=== PATIENT | male | born 1945 | race Two or more races ===

== ENCOUNTER 2022-12-22 20:05 | Inpatient (IN) | payer MEDICARE, MEDICAID ==
[~2022-12-22] VITALS: Ht 182.9 cm; Wt 88.5 kg
[2022-12-22 20:50] LABS: Basophils # (auto) 0.1 10 ^3/uL (0-0.2); Basophils % (auto) 0.8 % (0.0-2.0); Eosinophils # (auto) 0.1 10 ^3/uL (0-0.8); Eosinophils % (auto) 1.2 % (0.0-7.0); Hematocrit 24.1 % (41.0-53.0); Hemoglobin 7.7 g/dL (13.5-17.5); Lymphocytes # (auto) 0.4 10 ^3/uL (0.4-5.4); Lymphocytes % (auto) 3.2 % (10.0-50.0); Mean Corpuscular Hemoglobin 28.6 pg (28.0-32.0); Mean Corpuscular Volume 89.4 fL (80.0-100.0); Monocytes # (auto) 0.8 10 ^3/uL (0-1.3); Neutrophils # (auto) 9.8 10 ^3/uL (1.6-8.6); Neutrophils % (auto) 87.8 % (37.0-80.0); Red Blood Cells 2.69 10^6/uL (4.5-5.90); White Blood Cell 11.1 10^3/uL (4.4-10.8)
[2022-12-22 20:51] LABS: Red Cell Distribution Width 20.2 % (11.8-14.3)
[2022-12-22 21:04] LABS: INR 1.02 (0.9-1.15); Partial Thromboplastin Time 28.5 sec (24.6-33.4)
[2022-12-22 21:08] LABS: Albumin 3.3 g/dL (3.4-5.0); Calcium 8.9 mg/dL (8.5-10.1); Potassium 4.4 mmol/L (3.5-5.1)
[2022-12-22 21:12] LABS: Bilirubin, Total 0.8 mg/dL (0.2-1.0); Total Protein 7.2 g/dL (6.4-8.2)
[2022-12-22] MEDS ORDERED: LABETALOL HCL 5 MG/ML 4ML SYRINGE IV ONE (21:30)
[2022-12-22 22:30] VITALS: BP 178/82
[2022-12-23] VITALS (13 sets, daily range): BP systolic 178–248; BP diastolic 54–85
[2022-12-23] MEDS ORDERED: LABETALOL HCL 5 MG/ML 4ML SYRINGE IV ONE (01:15)
[2022-12-23] MEDS ORDERED: hydrALAZINE HCL 20 MG/ML VL IV ONE (03:00)
[2022-12-23] MEDS ORDERED: ONDANSETRON HCL 4 MG/2 ML VIAL IV PRN (04:30)
[2022-12-23] MEDS ORDERED: ACETAMINOPHEN 325 MG TAB PO PRN (04:30)
[2022-12-23] MEDS ORDERED: ENOXAPARIN SOD 100 MG/1 ML SYRINGE SC ONE (04:30)
[2022-12-23] MEDS ORDERED: MORPHINE SULFATE INJ 2 MG/ml SYRG IV PRN (04:30)
[2022-12-23] MEDS ORDERED: NITROGLYCERIN 0.4 MG SL TAB SL PRN (04:30)
[2022-12-23] MEDS ORDERED: dilTIAZem 25 MG/5 ML VIAL IV ONE (05:15)
[2022-12-23] MEDS: hydrALAZINE HCL 25 MG TAB PO SCH ×3 (06:02→21:51)
[2022-12-23] MEDS: TICAGRELOR 90 MG TAB PO SCH ×2 (09:38→21:52)
[2022-12-23] MEDS: PANTOPRAZOLE 40 MG TAB PO SCH (09:39)
[2022-12-23] MEDS: LOSARTAN POTASSIUM 50 MG TAB PO SCH (09:39)
[2022-12-23] MEDS ORDERED: ISOSORBIDE MONONITRATE ER 60 MG TAB PO SCH (10:00)
[2022-12-23] MEDS ORDERED: METOPROLOL TARTRATE 50 MG TAB PO SCH (10:00)
[2022-12-23] MEDS ORDERED: IOHEXOL 350 MG/ML 100ML IJ ONE (15:25)
[2022-12-23] MEDS: SEVELAMER 800 MG TAB PO SCH (17:50)
[2022-12-23 18:28] LABS: Hemoglobin 7.6 g/dL (13.5-17.5)
[2022-12-23] MEDS: hydrALAZINE HCL 20 MG/ML VL IV PRN (19:04)
[2022-12-23] MEDS: ATORVASTATIN 20 MG TAB PO SCH (21:51)
[2022-12-23] MEDS: CARVEDILOL 12.5 MG TAB PO SCH (21:51)
[2022-12-24] VITALS (36 sets, daily range): BP systolic 113–233; BP diastolic 38–113
[2022-12-24] MEDS: hydrALAZINE HCL 20 MG/ML VL IV PRN ×2 (00:36→17:56)
[2022-12-24] MEDS: hydrALAZINE HCL 25 MG TAB PO SCH ×3 (06:20→21:33)
[2022-12-24] MEDS ORDERED: SODIUM CHL 0.9% 1000 ML BAG XX ONE ×2 (07:00)
[2022-12-24 07:26] LABS: Basophils # (auto) 0.1 10 ^3/uL (0-0.2); Basophils % (auto) 0.8 % (0.0-2.0); Eosinophils # (auto) 0 10 ^3/uL (0-0.8); Eosinophils % (auto) 0.1 % (0.0-7.0); Hematocrit 25.3 % (41.0-53.0); Hemoglobin 8.6 g/dL (13.5-17.5); Lymphocytes # (auto) 0.5 10 ^3/uL (0.4-5.4); Lymphocytes % (auto) 4.8 % (10.0-50.0); Mean Corpuscular Hemoglobin 29.8 pg (28.0-32.0); Mean Corpuscular Hgb Conc. 33.9 g/dL (32.0-36.0); Mean Corpuscular Volume 87.9 fL (80.0-100.0); Monocytes # (auto) 0.6 10 ^3/uL (0-1.3); Monocytes % (auto) 6.2 % (0.0-12.0); Neutrophils # (auto) 8.4 10 ^3/uL (1.6-8.6); Neutrophils % (auto) 88.1 % (37.0-80.0); Red Blood Cells 2.88 10^6/uL (4.5-5.90); Red Cell Distribution Width 18.5 % (11.8-14.3); White Blood Cell 9.5 10^3/uL (4.4-10.8)
[2022-12-24 07:53] LABS: % Iron Saturation 32.8 % (20-55)
[2022-12-24 07:55] LABS: Calcium 8.9 mg/dL (8.5-10.1); Potassium 3.7 mmol/L (3.5-5.1)
[2022-12-24 08:00] LABS: Albumin 3.2 g/dL (3.4-5.0); BUN/Creatinine Ratio 8.6 (10.0-20.0); Bilirubin, Total 1.3 mg/dL (0.2-1.0); Phosphorus 1.5 mg/dL (2.5-4.90); Total Protein 7.2 g/dL (6.4-8.2)
[2022-12-24] MEDS: ENOXAPARIN SOD 100 MG/1 ML SYRINGE SC SCH (10:00)
[2022-12-24] MEDS: TICAGRELOR 90 MG TAB PO SCH ×2 (10:00→21:32)
[2022-12-24] MEDS: LOSARTAN POTASSIUM 50 MG TAB PO SCH (11:24)
[2022-12-24] MEDS: CARVEDILOL 12.5 MG TAB PO SCH ×2 (11:24→21:33)
[2022-12-24] MEDS: SEVELAMER 800 MG TAB PO SCH ×3 (11:25→17:54)
[2022-12-24] MEDS: ISOSORBIDE MONONITRATE ER 60 MG TAB PO SCH (11:26)
[2022-12-24] MEDS: PANTOPRAZOLE 40 MG TAB PO SCH (11:26)
[2022-12-24] MEDS: cloNIDine HCL 0.1 MG TAB PO PRN (13:28)
[2022-12-24] MEDS ORDERED: EPOETIN ALFA-EPBX 10,000 UNIT/1ML VIAL SC ONE ×2 (21:00)
[2022-12-24] MEDS: ATORVASTATIN 20 MG TAB PO SCH (21:33)
[2022-12-25] VITALS (23 sets, daily range): BP systolic 138–174; BP diastolic 36–78
[2022-12-25] MEDS: hydrALAZINE HCL 25 MG TAB PO SCH ×3 (05:30→22:29)
[2022-12-25] MEDS: SEVELAMER 800 MG TAB PO SCH ×3 (08:12→17:44)
[2022-12-25] MEDS: CARVEDILOL 12.5 MG TAB PO SCH ×2 (09:30→22:29)
[2022-12-25] MEDS: ENOXAPARIN SOD 100 MG/1 ML SYRINGE SC SCH (09:31)
[2022-12-25] MEDS: LOSARTAN POTASSIUM 50 MG TAB PO SCH (09:31)
[2022-12-25] MEDS: PANTOPRAZOLE 40 MG TAB PO SCH (09:31)
[2022-12-25] MEDS: ISOSORBIDE MONONITRATE ER 60 MG TAB PO SCH (09:32)
[2022-12-25] MEDS: TICAGRELOR 90 MG TAB PO SCH ×2 (09:32→22:29)
[2022-12-25] MEDS: hydrALAZINE HCL 20 MG/ML VL IV PRN (12:47)
[2022-12-25] MEDS ORDERED: BUMETANIDE 2.5mg/10ml (0.25 mg/ml) INJ IV ONE (14:15)
[2022-12-25] MEDS: BUMETANIDE 2.5mg/10ml (0.25 mg/ml) INJ IV SCH (17:44)
[2022-12-25] MEDS: ALBUTEROL SULF 2.5 MG/0.5ML(0.5%) NEB SOLN NEB PRN (18:16)
[2022-12-25] MEDS: cloNIDine HCL 0.1 MG TAB PO PRN (20:28)
[2022-12-25] MEDS: guaiFENesin-DM 100/10mg/5ml SYR PO PRN (20:29)
[2022-12-25] MEDS: ATORVASTATIN 20 MG TAB PO SCH (22:29)
[2022-12-26 05:00] VITALS: BP 120/66
[2022-12-26] MEDS: hydrALAZINE HCL 25 MG TAB PO SCH ×3 (05:19→21:47)
[2022-12-26] MEDS: BUMETANIDE 2.5mg/10ml (0.25 mg/ml) INJ IV SCH ×2 (05:21→17:31)
[2022-12-26 07:01] LABS: Basophils # (auto) 0.1 10 ^3/uL (0-0.2); Eosinophils # (auto) 0.4 10 ^3/uL (0-0.8); Lymphocytes # (auto) 0.3 10 ^3/uL (0.4-5.4); Mean Corpuscular Hemoglobin 29.7 pg (28.0-32.0); Mean Corpuscular Hgb Conc. 33.2 g/dL (32.0-36.0); Mean Corpuscular Volume 89.4 fL (80.0-100.0); Neutrophils # (auto) 5.9 10 ^3/uL (1.6-8.6); Nucleated Red Blood Cells % 0.1 %
[2022-12-26 07:03] LABS: Basophils % (auto) 0.7 % (0.0-2.0); Eosinophils % (auto) 5.2 % (0.0-7.0); Hematocrit 23.6 % (41.0-53.0); Hemoglobin 7.8 g/dL (13.5-17.5); Lymphocytes % (auto) 4.5 % (10.0-50.0); Monocytes # (auto) 0.5 10 ^3/uL (0-1.3); Monocytes % (auto) 7.6 % (0.0-12.0); Red Blood Cells 2.64 10^6/uL (4.5-5.90); Red Cell Distribution Width 18.3 % (11.8-14.3); White Blood Cell 7.1 10^3/uL (4.4-10.8)
[2022-12-26 08:22] VITALS: BP 160/49
[2022-12-26] MEDS: SEVELAMER 800 MG TAB PO SCH ×3 (08:50→17:31)
[2022-12-26] MEDS: guaiFENesin-DM 100/10mg/5ml SYR PO PRN (08:55)
[2022-12-26] MEDS: ENOXAPARIN SOD 100 MG/1 ML SYRINGE SC SCH (09:00)
[2022-12-26] MEDS: ISOSORBIDE MONONITRATE ER 60 MG TAB PO SCH (09:46)
[2022-12-26] MEDS: CARVEDILOL 12.5 MG TAB PO SCH ×2 (09:46→21:48)
[2022-12-26] MEDS: LOSARTAN POTASSIUM 50 MG TAB PO SCH (09:46)
[2022-12-26] MEDS: PANTOPRAZOLE 40 MG TAB PO SCH (09:47)
[2022-12-26] MEDS: TICAGRELOR 90 MG TAB PO SCH ×2 (10:06→21:26)
[2022-12-26] MEDS ORDERED: GOLYTELY 4L KIT PO ONE (12:00)
[2022-12-26 13:00] VITALS: BP 153/57
[2022-12-26 16:59] VITALS: BP 187/46
[2022-12-26 18:12] VITALS: BP 154/69
[2022-12-26] MEDS: ALBUTEROL SULF 2.5 MG/0.5ML(0.5%) NEB SOLN NEB PRN (18:47)
[2022-12-26] MEDS ORDERED: EPOETIN ALFA-EPBX 10,000 UNIT/1ML VIAL SC ONE (21:00)
[2022-12-26] MEDS: ATORVASTATIN 20 MG TAB PO SCH (21:26)
[2022-12-26 22:00] VITALS: BP 174/63
[2022-12-26 22:31] LABS: INR 1.02 (0.9-1.15); Partial Thromboplastin Time 22.4 sec (24.6-33.4)
[2022-12-27 05:00] VITALS: BP 137/106
[2022-12-27] MEDS: BUMETANIDE 2.5mg/10ml (0.25 mg/ml) INJ IV SCH ×2 (05:24→17:59)
[2022-12-27] MEDS: hydrALAZINE HCL 25 MG TAB PO SCH ×3 (05:24→20:57)
[2022-12-27 08:00] VITALS: BP 140/51
[2022-12-27] MEDS: SEVELAMER 800 MG TAB PO SCH ×3 (08:25→17:58)
[2022-12-27 09:00] VITALS: BP 140/51
[2022-12-27] MEDS: PANTOPRAZOLE 40 MG TAB PO SCH (09:59)
[2022-12-27] MEDS: CARVEDILOL 12.5 MG TAB PO SCH ×2 (09:59→20:58)
[2022-12-27] MEDS: ENOXAPARIN SOD 100 MG/1 ML SYRINGE SC SCH (10:00)
[2022-12-27] MEDS: LOSARTAN POTASSIUM 50 MG TAB PO SCH (10:00)
[2022-12-27] MEDS: TICAGRELOR 90 MG TAB PO SCH ×2 (10:00→20:58)
[2022-12-27] MEDS: ISOSORBIDE MONONITRATE ER 60 MG TAB PO SCH (10:00)
[2022-12-27] MEDS ORDERED: ASPI81CH59 PO (10:34)
[2022-12-27] MEDS ORDERED: ISO60SRT PO (10:34)
[2022-12-27] MEDS ORDERED: MET50T PO (10:34)
[2022-12-27] MEDS ORDERED: LOSA-39 PO (10:34)
[2022-12-27] MEDS ORDERED: FURO40TA4 PO (12:01)
[2022-12-27] MEDS ORDERED: OMEP20TA PO (12:01)
[2022-12-27] MEDS ORDERED: SEVE800T8 PO (12:01)
[2022-12-27] MEDS ORDERED: ATO40T PO (12:01)
[2022-12-27] MEDS ORDERED: LACT10SO3 PO (12:01)
[2022-12-27] MEDS ORDERED: INSLANTI SC (12:01)
[2022-12-27] MEDS ORDERED: HYDR25TA87 PO (12:01)
[2022-12-27] MEDS ORDERED: TICA90TA PO (12:01)
[2022-12-27] MEDS ORDERED: NIFE90TA49 PO (12:01)
[2022-12-27] MEDS ORDERED: LABE300T3 PO (12:01)
[2022-12-27] MEDS ORDERED: LIDOCAINE 2% (LOCAL ANESTH.) PF 5ml SDV ONE (12:12)
[2022-12-27] MEDS ORDERED: PROPOFOL 10 MG/ML 20 ML IV ONE (12:12)
[2022-12-27 12:30] VITALS: BP 144/58
[2022-12-27] MEDS ORDERED: DEXTROSE (50%) 50ML SYRG IV PRN (12:45)
[2022-12-27 12:54] LABS: Hepatitis A Ab IgM Negative
[2022-12-27 12:55] LABS: Hepatitis B Core IgM Negative; Hepatitis C Antibody Negative (Negative)
[2022-12-27] MEDS ORDERED: THROAT LOZENGES(CEPASTAT) MT ONE (13:45)
[2022-12-27] MEDS: guaiFENesin-DM 100/10mg/5ml SYR PO PRN (14:17)
[2022-12-27 15:12] LABS: Calcium 8.3 mg/dL (8.5-10.1); Potassium 5.4 mmol/L (3.5-5.1)
[2022-12-27 15:15] LABS: BUN/Creatinine Ratio 8.5 (10.0-20.0)
[2022-12-27] MEDS: ALBUTEROL SULF 2.5 MG/0.5ML(0.5%) NEB SOLN NEB PRN (16:03)
[2022-12-27] MEDS: ACCU-CHEK COMFORT CURVE STRIP VI SCH ×2 (16:45→20:59)
[2022-12-27] MEDS: InsuLIN REG 1unit/0.01ml Soln (100units/ml) SC SCH ×2 (16:46→21:30)
[2022-12-27 17:03] VITALS: BP 148/54
[2022-12-27] MEDS: ATORVASTATIN 20 MG TAB PO SCH (20:59)
[2022-12-27 22:00] VITALS: BP 139/74
[2022-12-27] MEDS: INSULIN LANTUS (GLARGINE) 1 /0.01ml (100units/ml) SC SCH (22:03)
[2022-12-28] VITALS (7 sets, daily range): BP systolic 123–184; BP diastolic 53–67
[2022-12-28] MEDS: BUMETANIDE 2.5mg/10ml (0.25 mg/ml) INJ IV SCH ×2 (05:23→18:16)
[2022-12-28] MEDS: hydrALAZINE HCL 25 MG TAB PO SCH ×2 (05:23→14:03)
[2022-12-28] MEDS: ACCU-CHEK COMFORT CURVE STRIP VI SCH ×3 (06:25→16:57)
[2022-12-28] MEDS: InsuLIN REG 1unit/0.01ml Soln (100units/ml) SC SCH ×4 (06:25→22:00)
[2022-12-28 06:31] LABS: Basophils # (auto) 0 10 ^3/uL (0-0.2); Eosinophils # (auto) 0.3 10 ^3/uL (0-0.8); Hemoglobin 8.2 g/dL (13.5-17.5); Monocytes # (auto) 0.7 10 ^3/uL (0-1.3); Red Cell Distribution Width 18.2 % (11.8-14.3)
[2022-12-28 06:34] LABS: Basophils % (auto) 0.5 % (0.0-2.0); Eosinophils % (auto) 3.8 % (0.0-7.0); Hematocrit 24.7 % (41.0-53.0); Lymphocytes # (auto) 0.5 10 ^3/uL (0.4-5.4); Lymphocytes % (auto) 5.7 % (10.0-50.0); Mean Corpuscular Hemoglobin 29.5 pg (28.0-32.0); Mean Corpuscular Hgb Conc. 33.1 g/dL (32.0-36.0); Mean Corpuscular Volume 89.2 fL (80.0-100.0); Monocytes % (auto) 8.6 % (0.0-12.0); Neutrophils # (auto) 6.5 10 ^3/uL (1.6-8.6); Neutrophils % (auto) 81.4 % (37.0-80.0); Nucleated Red Blood Cells % 0.1 %; Red Blood Cells 2.77 10^6/uL (4.5-5.90)
[2022-12-28 06:40] LABS: Potassium 5.4 mmol/L (3.5-5.1)
[2022-12-28 06:48] LABS: BUN/Creatinine Ratio 8.2 (10.0-20.0); Calcium 8.7 mg/dL (8.5-10.1)
[2022-12-28 06:55] LABS: % Iron Saturation 24.5 % (20-55)
[2022-12-28] MEDS ORDERED: SODIUM CHL 0.9% 1000 ML BAG XX ONE (07:00)
[2022-12-28] MEDS: SEVELAMER 800 MG TAB PO SCH ×3 (08:19→18:10)
[2022-12-28] MEDS: TICAGRELOR 90 MG TAB PO SCH (10:18)
[2022-12-28] MEDS: LOSARTAN POTASSIUM 50 MG TAB PO SCH (10:18)
[2022-12-28] MEDS: PANTOPRAZOLE 40 MG TAB PO SCH (10:18)
[2022-12-28] MEDS: CARVEDILOL 12.5 MG TAB PO SCH (10:18)
[2022-12-28] MEDS: ISOSORBIDE MONONITRATE ER 60 MG TAB PO SCH (10:19)
[2022-12-28] MEDS: ALBUTEROL SULF 2.5 MG/0.5ML(0.5%) NEB SOLN NEB PRN (12:17)
[2022-12-28] MEDS: guaiFENesin-DM 100/10mg/5ml SYR PO PRN (14:06)
[2022-12-28] MEDS ORDERED: EPOETIN ALFA-EPBX 10,000 UNIT/1ML VIAL SC ONE (21:00)
[2022-12-29] MEDS: hydrALAZINE HCL 25 MG TAB PO SCH ×4 (00:22→21:51)
[2022-12-29] MEDS: ATORVASTATIN 20 MG TAB PO SCH ×2 (00:23→21:51)
[2022-12-29] MEDS: CARVEDILOL 12.5 MG TAB PO SCH ×3 (00:23→21:50)
[2022-12-29] MEDS: TICAGRELOR 90 MG TAB PO SCH ×3 (00:23→21:51)
[2022-12-29] MEDS: ACCU-CHEK COMFORT CURVE STRIP VI SCH ×5 (00:27→21:52)
[2022-12-29] MEDS: INSULIN LANTUS (GLARGINE) 1 /0.01ml (100units/ml) SC SCH ×2 (00:34→21:49)
[2022-12-29 05:14] VITALS: BP 176/66
[2022-12-29] MEDS: BUMETANIDE 2.5mg/10ml (0.25 mg/ml) INJ IV SCH ×2 (06:16→18:05)
[2022-12-29] MEDS: InsuLIN REG 1unit/0.01ml Soln (100units/ml) SC SCH ×4 (06:21→21:49)
[2022-12-29 06:32] LABS: BUN/Creatinine Ratio 6.1 (10.0-20.0); Calcium 8.8 mg/dL (8.5-10.1); Potassium 4.7 mmol/L (3.5-5.1)
[2022-12-29] MEDS: ALBUTEROL SULF 2.5 MG/0.5ML(0.5%) NEB SOLN NEB PRN (06:34)
[2022-12-29 07:30] VITALS: BP 123/63
[2022-12-29] MEDS: SEVELAMER 800 MG TAB PO SCH ×3 (08:24→18:05)
[2022-12-29 09:17] VITALS: BP 123/63
[2022-12-29 12:27] VITALS: BP 189/45
[2022-12-29] MEDS: LOSARTAN POTASSIUM 50 MG TAB PO SCH (14:39)
[2022-12-29] MEDS: ISOSORBIDE MONONITRATE ER 60 MG TAB PO SCH (14:41)
[2022-12-29] MEDS: metOLazone 5 MG TAB PO SCH (14:44)
[2022-12-29] MEDS: PANTOPRAZOLE 40 MG TAB PO SCH (14:44)
[2022-12-29 16:36] VITALS: BP 118/59
[2022-12-29 20:00] VITALS: BP 155/49
[2022-12-29] MEDS ORDERED: EPOETIN ALFA-EPBX 10,000 UNIT/1ML VIAL SC ONE (21:00)
[2022-12-30 00:36] VITALS: BP 155/49
[2022-12-30] MEDS: InsuLIN REG 1unit/0.01ml Soln (100units/ml) SC SCH ×3 (06:07→17:00)
[2022-12-30] MEDS: guaiFENesin-DM 100/10mg/5ml SYR PO PRN (06:22)
[2022-12-30] MEDS: ACCU-CHEK COMFORT CURVE STRIP VI SCH ×3 (06:27→17:00)
[2022-12-30] MEDS: BUMETANIDE 2.5mg/10ml (0.25 mg/ml) INJ IV SCH (06:27)
[2022-12-30] MEDS: hydrALAZINE HCL 25 MG TAB PO SCH ×2 (06:27→15:10)
[2022-12-30 08:00] VITALS: BP 165/72
[2022-12-30] MEDS: SEVELAMER 800 MG TAB PO SCH ×2 (08:50→12:40)
[2022-12-30] MEDS: TICAGRELOR 90 MG TAB PO SCH (08:50)
[2022-12-30] MEDS: CARVEDILOL 12.5 MG TAB PO SCH (08:51)
[2022-12-30] MEDS: LOSARTAN POTASSIUM 50 MG TAB PO SCH (08:52)
[2022-12-30] MEDS: ISOSORBIDE MONONITRATE ER 60 MG TAB PO SCH (08:52)
[2022-12-30] MEDS: PANTOPRAZOLE 40 MG TAB PO SCH (08:53)
[2022-12-30] MEDS: metOLazone 5 MG TAB PO SCH (08:54)
[2022-12-30 09:00] VITALS: BP 165/72
[2022-12-30 13:00] VITALS: BP 129/79
[2022-12-30 17:16] VITALS: BP 155/80
== END 2022-12-30 18:06 | DRG 280 ==
LOC: EDBD 20:05 → ER 20:05 → TELE 12-23 04:28 → ICU WEST 12-24 04:34 → TELE-WESTW 12-25 21:30
PROVIDERS: ADMIT Nurse Practitioner; ATTEND Family Medicine
PROC: 5A09357 Assistance with Respiratory Ventilation, Less than 24 Consecutive Hours, Continuous Positive Airway Pressure (ICD-10-PCS; 2022-12-22)
PROC: 5A09357 Assistance with Respiratory Ventilation, Less than 24 Consecutive Hours, Continuous Positive Airway Pressure (ICD-10-PCS; 2022-12-23)
PROC: 05H933Z Insertion of Infusion Device into Right Brachial Vein, Percutaneous Approach (ICD-10-PCS; 2022-12-23)
PROC: B54MZZA Ultrasonography of Right Upper Extremity Veins, Guidance (ICD-10-PCS; 2022-12-23)
PROC: 30233N1 Transfusion of Nonautologous Red Blood Cells into Peripheral Vein, Percutaneous Approach (ICD-10-PCS; 2022-12-23)
PROC: 5A1D70Z Performance of Urinary Filtration, Intermittent, Less than 6 Hours Per Day (ICD-10-PCS; principal; 2022-12-24)
PROC: 5A1D70Z Performance of Urinary Filtration, Intermittent, Less than 6 Hours Per Day (ICD-10-PCS; 2022-12-24)
PROC: 5A1D70Z Performance of Urinary Filtration, Intermittent, Less than 6 Hours Per Day (ICD-10-PCS; 2022-12-24)
PROC: 5A1D70Z Performance of Urinary Filtration, Intermittent, Less than 6 Hours Per Day (ICD-10-PCS; 2022-12-28)
PROC: 5A1D70Z Performance of Urinary Filtration, Intermittent, Less than 6 Hours Per Day (ICD-10-PCS; 2022-12-29)
DX: I21.4 Non-ST elevation (NSTEMI) myocardial infarction (principal); I50.43 Acute on chronic combined systolic (congestive) and diastolic (congestive) heart failure; J96.01 Acute respiratory failure with hypoxia; N18.6 End stage renal disease; I13.2 Hypertensive heart and chronic kidney disease with heart failure and with stage 5 chronic kidney disease, or end stage renal disease; J44.1 Chronic obstructive pulmonary disease with (acute) exacerbation; D62 Acute posthemorrhagic anemia; I16.1 Hypertensive emergency; K92.2 Gastrointestinal hemorrhage, unspecified; J91.8 Pleural effusion in other conditions classified elsewhere; B19.10 Unspecified viral hepatitis B without hepatic coma; Z20.822 Contact with and (suspected) exposure to COVID-19; E11.22 Type 2 diabetes mellitus with diabetic chronic kidney disease; E11.51 Type 2 diabetes mellitus with diabetic peripheral angiopathy without gangrene; D63.1 Anemia in chronic kidney disease; E78.00 Pure hypercholesterolemia, unspecified; I27.20 Pulmonary hypertension, unspecified; Z99.2 Dependence on renal dialysis; Z90.49 Acquired absence of other specified parts of digestive tract
CPT/HCPCS: 36415; 36600; 71045; 71275; 76604; 80048; 80053; 80074; 82728; 82805; 82962; 83540; 83550; 83880; 84100; 84484; 85014; 85018; 85025; 85379; 85610; 85730; 86850; 86900; 86901; 86920; 87081; 87426; 90935; 93005; 93306; 93970; 94640; 94660; 97110; 97163; 99291; G0378; J1815; J2001; J2405; J2704; J3490

== ENCOUNTER 2023-01-20 12:37 | Inpatient (IN) | payer MEDICARE, MEDICAID ==
[~2023-01-20] VITALS: Ht 180.3 cm; Wt 105.4 kg
[~2023-01-20 12:37] MED LIST: ASPI81CH59 PO; ATO40T PO; FURO40TA4 PO; HYDR25TA87 PO; INSLANTI SC; ISO60SRT PO; LABE300T3 PO; LACT10SO3 PO; LOSA100T58 PO; MET50T PO; NIFE90TA75 PO; OMEP20TA PO; SEVE800T8 PO; TICA90TA PO
[2023-01-20 13:56] LABS: Albumin 3.4 g/dL (3.4-5.0); Calcium 8.4 mg/dL (8.5-10.1)
[2023-01-20 14:01] LABS: BUN/Creatinine Ratio 7.4 (10.0-20.0); Basophils # (auto) 0.1 10 ^3/uL (0-0.2); Bilirubin, Total 0.6 mg/dL (0.2-1.0); Eosinophils # (auto) 0.3 10 ^3/uL (0-0.8); Eosinophils % (auto) 5.3 % (0.0-7.0); Hematocrit 28.1 % (41.0-53.0); Lymphocytes # (auto) 0.7 10 ^3/uL (0.4-5.4); Lymphocytes % (auto) 12.5 % (10.0-50.0); Mean Corpuscular Hgb Conc. 32.1 g/dL (32.0-36.0); Mean Corpuscular Volume 90.5 fL (80.0-100.0); Monocytes # (auto) 0.4 10 ^3/uL (0-1.3); Monocytes % (auto) 7.3 % (0.0-12.0); Neutrophils # (auto) 4.2 10 ^3/uL (1.6-8.6); Neutrophils % (auto) 72.9 % (37.0-80.0); Nucleated Red Blood Cells % 0.2 %; Red Blood Cells 3.11 10^6/uL (4.5-5.90); Red Cell Distribution Width 17.8 % (11.8-14.3); White Blood Cell 5.8 10^3/uL (4.4-10.8)
[2023-01-20 14:02] LABS: INR 1.11 (0.9-1.15); Partial Thromboplastin Time 28.2 sec (24.6-33.4)
[2023-01-20 14:13] LABS: Potassium 5.6 mmol/L (3.5-5.1)
[2023-01-20] MEDS ORDERED: ACETAMINOPHEN 325 MG TAB PO PRN (17:00)
[2023-01-20] MEDS ORDERED: InsuLIN REG 1unit/0.01ml Soln (100units/ml) IV ONE (17:00)
[2023-01-20] MEDS ORDERED: DEXTROSE (50%) 50ML SYRG IV ONE (17:00)
[2023-01-20] MEDS ORDERED: SODIUM ZIRCONIUM CYCL 10 GM PAK PO ONE (17:00)
[2023-01-20] MEDS ORDERED: SODIUM BICARBONATE 8.4% INJ 50ML SYRINGE IV ONE (17:00)
[2023-01-20] MEDS ORDERED: ALBUTEROL SULF 2.5 MG/0.5ML(0.5%) NEB SOLN NEB ONE (17:00)
[2023-01-20] MEDS ORDERED: hydrALAZINE HCL 20 MG/ML VL IV PRN (17:00)
[2023-01-20] MEDS ORDERED: MORPHINE SULFATE INJ 2 MG/ml SYRG IV PRN (17:00)
[2023-01-20] MEDS ORDERED: NITROGLYCERIN 0.4 MG SL TAB SL PRN (17:00)
[2023-01-20] MEDS ORDERED: PANTOPRAZOLE 40 MG/10 ML VIAL INJ IV ONE (17:00)
[2023-01-20] MEDS ORDERED: FUROSEMIDE 20 MG/2 ML VIAL IV ONE (17:15)
[2023-01-20] MEDS ORDERED: DEXTROSE 10% 250 ML IV ONE (17:20)
[2023-01-20] MEDS ORDERED: DEXTROSE (50%) 50ML SYRG IV PRN (17:30)
[2023-01-20] MEDS ORDERED: ALBUTEROL SULF 2.5 MG/0.5ML(0.5%) NEB SOLN NEB PRN (17:30)
[2023-01-20] MEDS: ALBUTEROL SULF 2.5 MG/0.5ML(0.5%) NEB SOLN NEB SCH ×2 (18:28→22:20)
[2023-01-20] MEDS: IPRATROPIUM BROM 0.5 MG/2.5ML INH SOL NEB SCH ×2 (18:28→22:20)
[2023-01-20 18:35] LABS: % Iron Saturation 21.1 % (20-55)
[2023-01-20 19:20] VITALS: BP 200/90
[2023-01-20] MEDS ORDERED: LABETALOL HCL 200 MG TAB PO SCH (22:00)
[2023-01-20] MEDS ORDERED: ISOSORBIDE MONONITRATE ER 60 MG TAB PO SCH (22:00)
[2023-01-20] MEDS: InsuLIN REG 1unit/0.01ml Soln (100units/ml) SC SCH (22:00)
[2023-01-20] MEDS ORDERED: HEPARIN SODIUM (PORCINE) 5000 UNITS/ML 1ML VIAL SC SCH (22:00)
[2023-01-20] MEDS: ACCU-CHEK COMFORT CURVE STRIP VI SCH (22:14)
[2023-01-20] MEDS: SEVELAMER 800 MG TAB PO SCH (22:23)
[2023-01-21] MEDS ORDERED: CARVEDILOL 12.5 MG TAB PO ONE (01:30)
[2023-01-21] MEDS ORDERED: amLODIPine BESYLATE 5 MG TAB PO ONE (01:30)
[2023-01-21] MEDS: ALBUTEROL SULF 2.5 MG/0.5ML(0.5%) NEB SOLN NEB SCH ×6 (01:46→22:19)
[2023-01-21] MEDS: IPRATROPIUM BROM 0.5 MG/2.5ML INH SOL NEB SCH ×6 (01:46→22:19)
[2023-01-21] MEDS ORDERED: SODIUM CHL 0.9% 1000 ML BAG XX ONE (07:00)
[2023-01-21] MEDS: InsuLIN REG 1unit/0.01ml Soln (100units/ml) SC SCH ×4 (07:00→22:09)
[2023-01-21 07:17] LABS: Basophils # (auto) 0.1 10 ^3/uL (0-0.2); Eosinophils # (auto) 0.3 10 ^3/uL (0-0.8); Hemoglobin 7.8 g/dL (13.5-17.5); Lymphocytes # (auto) 0.6 10 ^3/uL (0.4-5.4); Neutrophils # (auto) 4.3 10 ^3/uL (1.6-8.6); Nucleated Red Blood Cells % 0.1 %
[2023-01-21 07:19] LABS: Basophils % (auto) 1.5 % (0.0-2.0); Eosinophils % (auto) 5.1 % (0.0-7.0); Hematocrit 23.8 % (41.0-53.0); Lymphocytes % (auto) 9.7 % (10.0-50.0); Mean Corpuscular Hemoglobin 29.7 pg (28.0-32.0); Mean Corpuscular Hgb Conc. 32.9 g/dL (32.0-36.0); Mean Corpuscular Volume 90.3 fL (80.0-100.0); Monocytes # (auto) 0.5 10 ^3/uL (0-1.3); Monocytes % (auto) 7.9 % (0.0-12.0); Neutrophils % (auto) 75.8 % (37.0-80.0); Red Blood Cells 2.64 10^6/uL (4.5-5.90); White Blood Cell 5.7 10^3/uL (4.4-10.8)
[2023-01-21] MEDS: ACCU-CHEK COMFORT CURVE STRIP VI SCH ×4 (07:29→22:09)
[2023-01-21 07:37] LABS: Calcium 8.2 mg/dL (8.5-10.1)
[2023-01-21 07:43] LABS: Albumin 3.1 g/dL (3.4-5.0); BUN/Creatinine Ratio 8.4 (10.0-20.0); Bilirubin, Total 0.6 mg/dL (0.2-1.0); Total Protein 5.9 g/dL (6.4-8.2)
[2023-01-21 07:46] LABS: Potassium 6.2 mmol/L (3.5-5.1)
[2023-01-21] MEDS ORDERED: InsuLIN REG 1unit/0.01ml Soln (100units/ml) IV ONE (09:45)
[2023-01-21] MEDS ORDERED: SODIUM ZIRCONIUM CYCL 10 GM PAK PO ONE (09:45)
[2023-01-21] MEDS ORDERED: SODIUM BICARBONATE 8.4% INJ 50ML SYRINGE IV ONE (09:45)
[2023-01-21] MEDS ORDERED: DEXTROSE (50%) 50ML SYRG IV ONE (09:45)
[2023-01-21] MEDS ORDERED: ASPirin-EC 81 mg tab PO SCH (10:00)
[2023-01-21] MEDS ORDERED: TICAGRELOR 90 MG TAB PO SCH (10:00)
[2023-01-21] MEDS ORDERED: LOSARTAN POTASSIUM 50 MG TAB PO SCH (10:00)
[2023-01-21] MEDS ORDERED: CALCIUM GLUC 1,000mg/50ml-NS 50 ML IV ONE (10:15)
[2023-01-21] MEDS: FUROSEMIDE 20 MG/2 ML VIAL IV SCH (10:16)
[2023-01-21] MEDS: PANTOPRAZOLE 40 MG/10 ML VIAL INJ IV SCH (10:16)
[2023-01-21] MEDS: NIFEdipine ER 30 MG TAB PO SCH (10:17)
[2023-01-21] MEDS: ATORVASTATIN 20 MG TAB PO SCH (10:17)
[2023-01-21] MEDS: METOPROLOL TARTRATE 50 MG TAB PO SCH (10:18)
[2023-01-21] MEDS: SEVELAMER 800 MG TAB PO SCH ×3 (10:26→18:17)
[2023-01-21 16:45] LABS: Hematocrit 24.3 % (41.0-53.0); Hemoglobin 8.1 g/dL (13.5-17.5); Lymphocytes # (auto) 0.4 10 ^3/uL (0.4-5.4); Mean Corpuscular Hgb Conc. 33.3 g/dL (32.0-36.0); Neutrophils % (auto) 76.9 % (37.0-80.0); Nucleated Red Blood Cells % 0.1 %; Red Blood Cells 2.74 10^6/uL (4.5-5.90); Red Cell Distribution Width 17.5 % (11.8-14.3); White Blood Cell 4.6 10^3/uL (4.4-10.8)
[2023-01-21 16:47] LABS: Basophils # (auto) 0.1 10 ^3/uL (0-0.2); Basophils % (auto) 1.2 % (0.0-2.0); Eosinophils # (auto) 0.3 10 ^3/uL (0-0.8); Lymphocytes % (auto) 8.7 % (10.0-50.0); Mean Corpuscular Hemoglobin 29.5 pg (28.0-32.0); Mean Corpuscular Volume 88.5 fL (80.0-100.0); Monocytes # (auto) 0.3 10 ^3/uL (0-1.3); Monocytes % (auto) 7.2 % (0.0-12.0); Neutrophils # (auto) 3.6 10 ^3/uL (1.6-8.6)
[2023-01-21 17:22] LABS: Albumin 2.9 g/dL (3.4-5.0); BUN/Creatinine Ratio 7.6 (10.0-20.0); Calcium 8.4 mg/dL (8.5-10.1); Potassium 4.2 mmol/L (3.5-5.1)
[2023-01-21 17:24] LABS: Bilirubin, Total 0.7 mg/dL (0.2-1.0); Total Protein 6.3 g/dL (6.4-8.2)
[2023-01-21] MEDS ORDERED: EPOETIN ALFA-EPBX 10,000 UNIT/1ML VIAL SC ONE (21:00)
[2023-01-21 22:00] VITALS: BP 143/43
[2023-01-21 22:05] VITALS: BP 143/43
[2023-01-21] MEDS: hydrALAZINE HCL 25 MG TAB PO SCH (22:10)
[2023-01-22] MEDS: ALBUTEROL SULF 2.5 MG/0.5ML(0.5%) NEB SOLN NEB SCH ×6 (02:07→22:03)
[2023-01-22] MEDS: IPRATROPIUM BROM 0.5 MG/2.5ML INH SOL NEB SCH ×6 (02:08→22:03)
[2023-01-22 05:00] VITALS: BP 159/61
[2023-01-22] MEDS: InsuLIN REG 1unit/0.01ml Soln (100units/ml) SC SCH ×4 (05:36→21:52)
[2023-01-22] MEDS: ACCU-CHEK COMFORT CURVE STRIP VI SCH ×4 (05:36→21:23)
[2023-01-22] MEDS: hydrALAZINE HCL 25 MG TAB PO SCH ×3 (05:36→21:23)
[2023-01-22 08:20] VITALS: BP 145/40
[2023-01-22] MEDS: ATORVASTATIN 20 MG TAB PO SCH (08:50)
[2023-01-22] MEDS: SEVELAMER 800 MG TAB PO SCH ×3 (08:50→18:03)
[2023-01-22] MEDS: NIFEdipine ER 30 MG TAB PO SCH (08:50)
[2023-01-22] MEDS: METOPROLOL TARTRATE 50 MG TAB PO SCH (08:50)
[2023-01-22] MEDS: FUROSEMIDE 20 MG/2 ML VIAL IV SCH (08:51)
[2023-01-22] MEDS: PANTOPRAZOLE 40 MG/10 ML VIAL INJ IV SCH (08:51)
[2023-01-22] MEDS ORDERED: LISINOPRIL 20 MG TAB PO SCH (10:00)
[2023-01-22 12:20] VITALS: BP 157/40
[2023-01-22 16:15] VITALS: BP 142/50
[2023-01-22] MEDS ORDERED: GOLYTELY 4L KIT PO ONE (20:15)
[2023-01-22 22:00] VITALS: BP 134/47
[2023-01-23] MEDS: IPRATROPIUM BROM 0.5 MG/2.5ML INH SOL NEB SCH ×6 (02:05→22:10)
[2023-01-23] MEDS: ALBUTEROL SULF 2.5 MG/0.5ML(0.5%) NEB SOLN NEB SCH ×6 (02:05→22:11)
[2023-01-23 05:00] VITALS: BP 142/61
[2023-01-23] MEDS: hydrALAZINE HCL 25 MG TAB PO SCH ×4 (05:22→21:51)
[2023-01-23] MEDS: InsuLIN REG 1unit/0.01ml Soln (100units/ml) SC SCH ×4 (05:23→21:44)
[2023-01-23] MEDS: ACCU-CHEK COMFORT CURVE STRIP VI SCH ×4 (05:23→21:44)
[2023-01-23] MEDS ORDERED: GOLYTELY 4L KIT PO ONE ×2 (06:00→17:15)
[2023-01-23 08:10] VITALS: BP 146/38
[2023-01-23] MEDS: SEVELAMER 800 MG TAB PO SCH ×3 (08:33→17:58)
[2023-01-23] MEDS: PANTOPRAZOLE 40 MG/10 ML VIAL INJ IV SCH (08:35)
[2023-01-23] MEDS: FUROSEMIDE 20 MG/2 ML VIAL IV SCH (08:35)
[2023-01-23] MEDS: METOPROLOL TARTRATE 50 MG TAB PO SCH (08:36)
[2023-01-23] MEDS: ATORVASTATIN 20 MG TAB PO SCH (08:36)
[2023-01-23] MEDS: NIFEdipine ER 30 MG TAB PO SCH (08:36)
[2023-01-23 09:27] LABS: BUN/Creatinine Ratio 6.6 (10.0-20.0); Calcium 8.3 mg/dL (8.5-10.1)
[2023-01-23 09:34] LABS: Potassium 6.3 mmol/L (3.5-5.1)
[2023-01-23] MEDS ORDERED: ALBUTEROL SULF 2.5 MG/0.5ML(0.5%) NEB SOLN NEB ONE (09:45)
[2023-01-23] MEDS ORDERED: DEXTROSE (50%) 50ML SYRG IV ONE (09:45)
[2023-01-23] MEDS ORDERED: InsuLIN REG 1unit/0.01ml Soln (100units/ml) IV ONE (09:45)
[2023-01-23] MEDS ORDERED: SODIUM BICARBONATE 8.4 % INJ 50ML VIAL IV ONE (09:45)
[2023-01-23] MEDS: SODIUM ZIRCONIUM CYCL 10 GM PAK PO SCH ×3 (10:40→21:51)
[2023-01-23 12:05] VITALS: BP 156/40
[2023-01-23 16:15] VITALS: BP 163/46
[2023-01-23 19:30] VITALS: BP 160/46
[2023-01-23 22:00] VITALS: BP 160/46
[2023-01-24] MEDS: ALBUTEROL SULF 2.5 MG/0.5ML(0.5%) NEB SOLN NEB SCH ×6 (02:09→22:26)
[2023-01-24] MEDS: IPRATROPIUM BROM 0.5 MG/2.5ML INH SOL NEB SCH ×6 (02:09→22:26)
[2023-01-24 05:00] VITALS: BP 153/62
[2023-01-24] MEDS: InsuLIN REG 1unit/0.01ml Soln (100units/ml) SC SCH ×4 (06:12→21:52)
[2023-01-24] MEDS: ACCU-CHEK COMFORT CURVE STRIP VI SCH ×4 (06:12→21:42)
[2023-01-24 06:17] LABS: INR 1.19 (0.9-1.15)
[2023-01-24 06:21] LABS: Calcium 8.1 mg/dL (8.5-10.1)
[2023-01-24 06:25] LABS: BUN/Creatinine Ratio 7.4 (10.0-20.0); Basophils # (auto) 0 10 ^3/uL (0-0.2); Bilirubin, Total 0.8 mg/dL (0.2-1.0); Eosinophils # (auto) 0.2 10 ^3/uL (0-0.8); Lymphocytes # (auto) 0.6 10 ^3/uL (0.4-5.4); Monocytes # (auto) 0.4 10 ^3/uL (0-1.3); Neutrophils # (auto) 3.3 10 ^3/uL (1.6-8.6); Red Blood Cells 2.45 10^6/uL (4.5-5.90); Total Protein 5.9 g/dL (6.4-8.2)
[2023-01-24 06:28] LABS: Eosinophils % (auto) 4.5 % (0.0-7.0); Hematocrit 21.3 % (41.0-53.0); Hemoglobin 7.3 g/dL (13.5-17.5); Lymphocytes % (auto) 12.5 % (10.0-50.0); Mean Corpuscular Hemoglobin 29.8 pg (28.0-32.0); Mean Corpuscular Hgb Conc. 34.3 g/dL (32.0-36.0); Monocytes % (auto) 9.3 % (0.0-12.0); Neutrophils % (auto) 72.7 % (37.0-80.0); Red Cell Distribution Width 16.8 % (11.8-14.3); White Blood Cell 4.6 10^3/uL (4.4-10.8)
[2023-01-24 06:40] LABS: Potassium 5.6 mmol/L (3.5-5.1)
[2023-01-24] MEDS ORDERED: SODIUM CHL 0.9% 1000 ML BAG XX ONE (07:00)
[2023-01-24] MEDS: hydrALAZINE HCL 25 MG TAB PO SCH ×3 (07:54→21:55)
[2023-01-24 09:00] VITALS: BP 116/66
[2023-01-24] MEDS: SODIUM ZIRCONIUM CYCL 10 GM PAK PO SCH ×3 (09:47→21:53)
[2023-01-24] MEDS: PANTOPRAZOLE 40 MG/10 ML VIAL INJ IV SCH (09:47)
[2023-01-24] MEDS: NIFEdipine ER 30 MG TAB PO SCH (09:48)
[2023-01-24] MEDS: METOPROLOL TARTRATE 50 MG TAB PO SCH (09:48)
[2023-01-24] MEDS: FUROSEMIDE 20 MG/2 ML VIAL IV SCH (09:48)
[2023-01-24] MEDS: SEVELAMER 800 MG TAB PO SCH ×3 (09:51→18:31)
[2023-01-24] MEDS: ATORVASTATIN 20 MG TAB PO SCH (09:51)
[2023-01-24 13:00] VITALS: BP 170/66
[2023-01-24 16:30] VITALS: BP 163/43
[2023-01-24] MEDS ORDERED: POLYETHYLENE GLYCOL 17 GM PWDR PO ONE (21:00)
[2023-01-24] MEDS ORDERED: EPOETIN ALFA-EPBX 10,000 UNIT/1ML VIAL SC ONE (21:00)
[2023-01-25] VITALS (8 sets, daily range): BP systolic 106–226; BP diastolic 53–77
[2023-01-25] MEDS: IPRATROPIUM BROM 0.5 MG/2.5ML INH SOL NEB SCH ×6 (02:03→22:12)
[2023-01-25] MEDS: ALBUTEROL SULF 2.5 MG/0.5ML(0.5%) NEB SOLN NEB SCH ×6 (02:03→22:12)
[2023-01-25] MEDS: SODIUM ZIRCONIUM CYCL 10 GM PAK PO SCH (05:13)
[2023-01-25] MEDS: hydrALAZINE HCL 25 MG TAB PO SCH ×3 (05:13→22:00)
[2023-01-25] MEDS: ACCU-CHEK COMFORT CURVE STRIP VI SCH ×4 (06:07→22:04)
[2023-01-25] MEDS: InsuLIN REG 1unit/0.01ml Soln (100units/ml) SC SCH ×4 (06:07→22:00)
[2023-01-25] MEDS ORDERED: SODIUM CHL 0.9% 1000 ML BAG XX ONE (07:00)
[2023-01-25 08:30] LABS: Basophils # (auto) 0.1 10 ^3/uL (0-0.2); Basophils % (auto) 0.9 % (0.0-2.0); Eosinophils # (auto) 0.2 10 ^3/uL (0-0.8); Eosinophils % (auto) 3.4 % (0.0-7.0); Hematocrit 24.4 % (41.0-53.0); Hemoglobin 8.3 g/dL (13.5-17.5); Lymphocytes # (auto) 0.5 10 ^3/uL (0.4-5.4); Lymphocytes % (auto) 8.3 % (10.0-50.0); Mean Corpuscular Hemoglobin 30.3 pg (28.0-32.0); Mean Corpuscular Hgb Conc. 34.1 g/dL (32.0-36.0); Mean Corpuscular Volume 88.7 fL (80.0-100.0); Monocytes # (auto) 0.5 10 ^3/uL (0-1.3); Monocytes % (auto) 8.5 % (0.0-12.0); Neutrophils % (auto) 78.9 % (37.0-80.0); Nucleated Red Blood Cells % 0.1 %; Red Blood Cells 2.75 10^6/uL (4.5-5.90); Red Cell Distribution Width 17.2 % (11.8-14.3); White Blood Cell 6.3 10^3/uL (4.4-10.8)
[2023-01-25 08:42] LABS: BUN/Creatinine Ratio 5.7 (10.0-20.0); Calcium 8.6 mg/dL (8.5-10.1); Potassium 4.9 mmol/L (3.5-5.1)
[2023-01-25] MEDS ORDERED: SODIUM CHLORIDE LOCK 10 ML ONE ×2 (09:14→16:40)
[2023-01-25] MEDS ORDERED: diphenhdrAMINE HCL 50 MG/1 ML VL ONE (09:15)
[2023-01-25] MEDS ORDERED: MIDAZOLAM HCL 5 MG/ML-1ML VIAL ONE ×2 (09:15→16:41)
[2023-01-25] MEDS ORDERED: fentaNYL CITRATE 100 MCG/2 ML VL ONE (09:15)
[2023-01-25] MEDS: METOPROLOL TARTRATE 50 MG TAB PO SCH (10:00)
[2023-01-25] MEDS: NIFEdipine ER 30 MG TAB PO SCH (11:27)
[2023-01-25] MEDS: cloNIDine HCL 0.1 MG TAB PO PRN (11:27)
[2023-01-25] MEDS: SEVELAMER 800 MG TAB PO SCH ×3 (11:30→19:32)
[2023-01-25] MEDS: PANTOPRAZOLE 40 MG/10 ML VIAL INJ IV SCH (11:30)
[2023-01-25] MEDS: ATORVASTATIN 20 MG TAB PO SCH (11:30)
[2023-01-25] MEDS: FUROSEMIDE 20 MG/2 ML VIAL IV SCH (11:31)
[2023-01-25] MEDS ORDERED: NALOXONE HCL 0.4 MG/ML VIAL ONE (16:42)
[2023-01-25] MEDS ORDERED: FLUMAZENIL 0.1 MG/ML INJ 10ML MDV IV ONE (16:42)
[2023-01-25] MEDS: diphenhdrAMINE HCL 50 MG/1 ML VL ONE ×2 (16:58→17:06)
[2023-01-25] MEDS: fentaNYL CITRATE 100 MCG/2 ML VL ONE ×2 (16:58→17:03)
[2023-01-25] MEDS: SODIUM FERR GLUC 62.5MG/5ML 125 MG in SODIUM CHL 0.9% 100 ML IV SCH (19:32)
[2023-01-25] MEDS ORDERED: EPOETIN ALFA-EPBX 10,000 UNIT/1ML VIAL SC ONE (21:00)
[2023-01-25] MEDS: HYDROCORTISONE ACET 25 MG RECTAL SUPP PR SCH (22:48)
[2023-01-26] MEDS: ALBUTEROL SULF 2.5 MG/0.5ML(0.5%) NEB SOLN NEB SCH ×6 (02:02→23:00)
[2023-01-26] MEDS: IPRATROPIUM BROM 0.5 MG/2.5ML INH SOL NEB SCH ×6 (02:02→23:00)
[2023-01-26 05:00] VITALS: BP 152/69
[2023-01-26] MEDS: InsuLIN REG 1unit/0.01ml Soln (100units/ml) SC SCH ×4 (06:13→21:41)
[2023-01-26] MEDS: ACCU-CHEK COMFORT CURVE STRIP VI SCH ×4 (06:13→21:41)
[2023-01-26] MEDS: hydrALAZINE HCL 25 MG TAB PO SCH ×3 (06:13→21:40)
[2023-01-26 08:47] LABS: Potassium 4.8 mmol/L (3.5-5.1)
[2023-01-26 08:52] LABS: BUN/Creatinine Ratio 4.5 (10.0-20.0); Calcium 8.8 mg/dL (8.5-10.1)
[2023-01-26 09:00] VITALS: BP 158/78
[2023-01-26] MEDS: FUROSEMIDE 20 MG/2 ML VIAL IV SCH (09:36)
[2023-01-26] MEDS: PANTOPRAZOLE 40 MG/10 ML VIAL INJ IV SCH (09:36)
[2023-01-26] MEDS: METOPROLOL TARTRATE 50 MG TAB PO SCH (09:37)
[2023-01-26] MEDS: SEVELAMER 800 MG TAB PO SCH ×3 (09:37→18:38)
[2023-01-26] MEDS: NIFEdipine ER 30 MG TAB PO SCH (09:38)
[2023-01-26] MEDS: ATORVASTATIN 20 MG TAB PO SCH (09:39)
[2023-01-26] MEDS: HYDROCORTISONE ACET 25 MG RECTAL SUPP PR SCH ×2 (09:40→21:40)
[2023-01-26 10:07] LABS: Basophils # (auto) 0 10 ^3/uL (0-0.2); Hemoglobin 7.8 g/dL (13.5-17.5); Lymphocytes # (auto) 0.5 10 ^3/uL (0.4-5.4); Mean Corpuscular Hemoglobin 29.2 pg (28.0-32.0); Mean Corpuscular Hgb Conc. 32.9 g/dL (32.0-36.0); Red Blood Cells 2.66 10^6/uL (4.5-5.90); White Blood Cell 4.8 10^3/uL (4.4-10.8)
[2023-01-26 10:10] LABS: Basophils % (auto) 0.9 % (0.0-2.0); Eosinophils # (auto) 0.1 10 ^3/uL (0-0.8); Hematocrit 23.7 % (41.0-53.0); Lymphocytes % (auto) 10.3 % (10.0-50.0); Mean Corpuscular Volume 88.8 fL (80.0-100.0); Monocytes # (auto) 0.3 10 ^3/uL (0-1.3); Monocytes % (auto) 6.9 % (0.0-12.0); Neutrophils # (auto) 3.8 10 ^3/uL (1.6-8.6); Neutrophils % (auto) 78.9 % (37.0-80.0); Nucleated Red Blood Cells % 0.1 %; Red Cell Distribution Width 17.2 % (11.8-14.3)
[2023-01-26 12:48] VITALS: BP 154/65
[2023-01-26] MEDS: SODIUM FERR GLUC 62.5MG/5ML 125 MG in SODIUM CHL 0.9% 100 ML IV SCH (14:21)
[2023-01-26 16:35] VITALS: BP 148/61
[2023-01-26 22:00] VITALS: BP 147/43
[2023-01-27] MEDS: ALBUTEROL SULF 2.5 MG/0.5ML(0.5%) NEB SOLN NEB SCH ×6 (02:00→22:26)
[2023-01-27] MEDS: IPRATROPIUM BROM 0.5 MG/2.5ML INH SOL NEB SCH ×6 (02:00→22:26)
[2023-01-27 05:00] VITALS: BP 147/45
[2023-01-27] MEDS: hydrALAZINE HCL 25 MG TAB PO SCH ×3 (06:31→22:07)
[2023-01-27] MEDS: InsuLIN REG 1unit/0.01ml Soln (100units/ml) SC SCH ×4 (06:32→22:16)
[2023-01-27] MEDS: ACCU-CHEK COMFORT CURVE STRIP VI SCH ×4 (06:32→22:10)
[2023-01-27] MEDS: FUROSEMIDE 20 MG/2 ML VIAL IV SCH (08:52)
[2023-01-27] MEDS: SEVELAMER 800 MG TAB PO SCH ×3 (08:53→17:57)
[2023-01-27] MEDS: PANTOPRAZOLE 40 MG/10 ML VIAL INJ IV SCH (08:53)
[2023-01-27] MEDS: NIFEdipine ER 30 MG TAB PO SCH (08:54)
[2023-01-27] MEDS: ATORVASTATIN 20 MG TAB PO SCH (08:54)
[2023-01-27] MEDS: METOPROLOL TARTRATE 50 MG TAB PO SCH (08:54)
[2023-01-27] MEDS: HYDROCORTISONE ACET 25 MG RECTAL SUPP PR SCH ×2 (08:55→22:10)
[2023-01-27 09:00] VITALS: BP 178/53
[2023-01-27 13:00] VITALS: BP 184/60
[2023-01-27] MEDS: SODIUM FERR GLUC 62.5MG/5ML 125 MG in SODIUM CHL 0.9% 100 ML IV SCH (13:08)
[2023-01-27] MEDS ORDERED: PANTOPRAZOLE 40 MG/10 ML VIAL INJ IV ONE (13:45)
[2023-01-27] MEDS ORDERED: FUROSEMIDE 40 MG/4 ML VIAL IV ONE (14:15)
[2023-01-27 17:00] VITALS: BP 140/83
[2023-01-27] MEDS ORDERED: FUROSEMIDE 40 MG/4 ML VIAL IV SCH (18:00)
[2023-01-27 22:00] VITALS: BP 158/50
[2023-01-28] VITALS (7 sets, daily range): BP systolic 170–199; BP diastolic 47–92
[2023-01-28] MEDS: ALBUTEROL SULF 2.5 MG/0.5ML(0.5%) NEB SOLN NEB SCH ×6 (01:59→22:28)
[2023-01-28] MEDS: IPRATROPIUM BROM 0.5 MG/2.5ML INH SOL NEB SCH ×6 (01:59→22:28)
[2023-01-28] MEDS: hydrALAZINE HCL 25 MG TAB PO SCH ×3 (06:00→22:25)
[2023-01-28 06:01] LABS: Basophils # (auto) 0 10 ^3/uL (0-0.2); Eosinophils # (auto) 0.2 10 ^3/uL (0-0.8); Hemoglobin 7.7 g/dL (13.5-17.5); Lymphocytes # (auto) 0.5 10 ^3/uL (0.4-5.4); Nucleated Red Blood Cells % 0.1 %; White Blood Cell 7.3 10^3/uL (4.4-10.8)
[2023-01-28 06:03] LABS: Basophils % (auto) 0.6 % (0.0-2.0); Eosinophils % (auto) 2.6 % (0.0-7.0); Hematocrit 23.1 % (41.0-53.0); Lymphocytes % (auto) 6.6 % (10.0-50.0); Mean Corpuscular Hemoglobin 29.4 pg (28.0-32.0); Mean Corpuscular Hgb Conc. 33.4 g/dL (32.0-36.0); Monocytes # (auto) 0.6 10 ^3/uL (0-1.3); Monocytes % (auto) 7.6 % (0.0-12.0); Neutrophils % (auto) 82.6 % (37.0-80.0); Red Blood Cells 2.62 10^6/uL (4.5-5.90); Red Cell Distribution Width 16.9 % (11.8-14.3)
[2023-01-28 06:04] LABS: BUN/Creatinine Ratio 4.3 (10.0-20.0); Potassium 4.6 mmol/L (3.5-5.1)
[2023-01-28] MEDS: ACCU-CHEK COMFORT CURVE STRIP VI SCH ×4 (06:27→22:27)
[2023-01-28] MEDS: InsuLIN REG 1unit/0.01ml Soln (100units/ml) SC SCH ×4 (06:28→22:37)
[2023-01-28] MEDS ORDERED: SODIUM CHL 0.9% 1000 ML BAG XX ONE (07:00)
[2023-01-28] MEDS: PANTOPRAZOLE 40 MG/10 ML VIAL INJ IV SCH (09:40)
[2023-01-28] MEDS: SEVELAMER 800 MG TAB PO SCH ×3 (09:40→17:43)
[2023-01-28] MEDS: cloNIDine HCL 0.1 MG TAB PO PRN ×2 (09:41→22:26)
[2023-01-28] MEDS: HYDROCORTISONE ACET 25 MG RECTAL SUPP PR SCH ×2 (09:42→22:26)
[2023-01-28] MEDS: METOPROLOL TARTRATE 50 MG TAB PO SCH ×2 (09:43→14:50)
[2023-01-28] MEDS: NIFEdipine ER 30 MG TAB PO SCH ×2 (09:43→14:51)
[2023-01-28] MEDS: ATORVASTATIN 20 MG TAB PO SCH ×2 (09:43→14:51)
[2023-01-28] MEDS: SODIUM FERR GLUC 62.5MG/5ML 125 MG in SODIUM CHL 0.9% 100 ML IV SCH (12:08)
[2023-01-28] MEDS: hydrALAZINE HCL 20 MG/ML VL IV PRN (17:43)
[2023-01-28] MEDS ORDERED: EPOETIN ALFA-EPBX 10,000 UNIT/1ML VIAL SC ONE (21:00)
[2023-01-29] MEDS: IPRATROPIUM BROM 0.5 MG/2.5ML INH SOL NEB SCH ×6 (02:32→21:38)
[2023-01-29] MEDS: ALBUTEROL SULF 2.5 MG/0.5ML(0.5%) NEB SOLN NEB SCH ×6 (02:32→21:38)
[2023-01-29 04:58] LABS: Eosinophils # (auto) 0.2 10 ^3/uL (0-0.8); Lymphocytes # (auto) 0.6 10 ^3/uL (0.4-5.4); Monocytes # (auto) 0.7 10 ^3/uL (0-1.3); Neutrophils # (auto) 5.8 10 ^3/uL (1.6-8.6)
[2023-01-29 05:00] VITALS: BP 153/51
[2023-01-29 05:01] LABS: Basophils # (auto) 0.1 10 ^3/uL (0-0.2); Basophils % (auto) 0.7 % (0.0-2.0); Eosinophils % (auto) 2.9 % (0.0-7.0); Hematocrit 23.2 % (41.0-53.0); Hemoglobin 7.9 g/dL (13.5-17.5); Mean Corpuscular Hemoglobin 30.5 pg (28.0-32.0); Mean Corpuscular Hgb Conc. 34.2 g/dL (32.0-36.0); Mean Corpuscular Volume 89.2 fL (80.0-100.0); Monocytes % (auto) 9.1 % (0.0-12.0); Neutrophils % (auto) 79.3 % (37.0-80.0); Nucleated Red Blood Cells % 0.4 %; White Blood Cell 7.3 10^3/uL (4.4-10.8)
[2023-01-29 05:05] LABS: BUN/Creatinine Ratio 5.4 (10.0-20.0); Calcium 8.6 mg/dL (8.5-10.1); Potassium 4.8 mmol/L (3.5-5.1)
[2023-01-29] MEDS: cloNIDine HCL 0.1 MG TAB PO PRN ×2 (05:43→23:33)
[2023-01-29] MEDS: hydrALAZINE HCL 25 MG TAB PO SCH ×3 (05:43→23:32)
[2023-01-29] MEDS: InsuLIN REG 1unit/0.01ml Soln (100units/ml) SC SCH ×4 (07:00→23:49)
[2023-01-29] MEDS: ACCU-CHEK COMFORT CURVE STRIP VI SCH ×4 (07:03→23:48)
[2023-01-29 08:00] VITALS: BP 151/49
[2023-01-29 09:00] VITALS: BP 144/45
[2023-01-29] MEDS: SEVELAMER 800 MG TAB PO SCH ×3 (09:27→17:21)
[2023-01-29] MEDS: PANTOPRAZOLE 40 MG/10 ML VIAL INJ IV SCH (09:27)
[2023-01-29] MEDS: ATORVASTATIN 20 MG TAB PO SCH (09:28)
[2023-01-29] MEDS: HYDROCORTISONE ACET 25 MG RECTAL SUPP PR SCH ×2 (09:28→23:33)
[2023-01-29] MEDS: METOPROLOL TARTRATE 50 MG TAB PO SCH (09:28)
[2023-01-29] MEDS: NIFEdipine ER 30 MG TAB PO SCH (09:28)
[2023-01-29] MEDS: SODIUM FERR GLUC 62.5MG/5ML 125 MG in SODIUM CHL 0.9% 100 ML IV SCH (12:30)
[2023-01-29 13:00] VITALS: BP 152/55
[2023-01-29 17:00] VITALS: BP 150/54
[2023-01-29 22:00] VITALS: BP 160/52
[2023-01-30] MEDS: IPRATROPIUM BROM 0.5 MG/2.5ML INH SOL NEB SCH ×6 (01:57→22:33)
[2023-01-30] MEDS: ALBUTEROL SULF 2.5 MG/0.5ML(0.5%) NEB SOLN NEB SCH ×6 (01:57→22:33)
[2023-01-30 05:00] VITALS: BP 164/72
[2023-01-30 05:28] LABS: Calcium 8.4 mg/dL (8.5-10.1); Potassium 4.4 mmol/L (3.5-5.1)
[2023-01-30 05:31] LABS: BUN/Creatinine Ratio 4.8 (10.0-20.0)
[2023-01-30] MEDS: hydrALAZINE HCL 25 MG TAB PO SCH ×3 (06:21→22:54)
[2023-01-30] MEDS: cloNIDine HCL 0.1 MG TAB PO PRN ×2 (06:22→13:01)
[2023-01-30] MEDS: ACCU-CHEK COMFORT CURVE STRIP VI SCH ×4 (06:22→22:50)
[2023-01-30] MEDS: InsuLIN REG 1unit/0.01ml Soln (100units/ml) SC SCH ×4 (06:23→22:50)
[2023-01-30 06:45] LABS: Basophils # (auto) 0 10 ^3/uL (0-0.2); Basophils % (auto) 0.8 % (0.0-2.0); Eosinophils # (auto) 0.2 10 ^3/uL (0-0.8); Eosinophils % (auto) 4.3 % (0.0-7.0); Hematocrit 24.3 % (41.0-53.0); Hemoglobin 7.8 g/dL (13.5-17.5); Lymphocytes # (auto) 0.5 10 ^3/uL (0.4-5.4); Lymphocytes % (auto) 9.2 % (10.0-50.0); Mean Corpuscular Hemoglobin 28.8 pg (28.0-32.0); Mean Corpuscular Hgb Conc. 32.2 g/dL (32.0-36.0); Mean Corpuscular Volume 89.2 fL (80.0-100.0); Monocytes # (auto) 0.5 10 ^3/uL (0-1.3); Monocytes % (auto) 9.9 % (0.0-12.0); Neutrophils % (auto) 75.8 % (37.0-80.0); Nucleated Red Blood Cells % 0.2 %; Red Blood Cells 2.72 10^6/uL (4.5-5.90); Red Cell Distribution Width 16.9 % (11.8-14.3); White Blood Cell 5.2 10^3/uL (4.4-10.8)
[2023-01-30] MEDS: SEVELAMER 800 MG TAB PO SCH ×3 (07:56→18:24)
[2023-01-30 09:31] VITALS: BP 159/96
[2023-01-30] MEDS: PANTOPRAZOLE 40 MG/10 ML VIAL INJ IV SCH (10:00)
[2023-01-30] MEDS: ATORVASTATIN 20 MG TAB PO SCH (10:00)
[2023-01-30] MEDS: METOPROLOL TARTRATE 50 MG TAB PO SCH (10:01)
[2023-01-30] MEDS: NIFEdipine ER 30 MG TAB PO SCH (10:01)
[2023-01-30] MEDS: HYDROCORTISONE ACET 25 MG RECTAL SUPP PR SCH ×2 (10:10→22:54)
[2023-01-30] MEDS: DOCUSATE SOD 100 MG CAP PO PRN ×2 (10:31→22:53)
[2023-01-30] MEDS: SODIUM FERR GLUC 62.5MG/5ML 125 MG in SODIUM CHL 0.9% 100 ML IV SCH (12:34)
[2023-01-30 13:00] VITALS: BP 171/74
[2023-01-30] MEDS ORDERED: POLYETHYLENE GLYCOL 17 GM PWDR PO ONE (13:45)
[2023-01-30 17:00] VITALS: BP 154/74
[2023-01-30 22:00] VITALS: BP 151/58
[2023-01-31] VITALS (7 sets, daily range): BP systolic 170–189; BP diastolic 57–72
[2023-01-31] MEDS: ALBUTEROL SULF 2.5 MG/0.5ML(0.5%) NEB SOLN NEB SCH ×6 (02:13→22:22)
[2023-01-31] MEDS: IPRATROPIUM BROM 0.5 MG/2.5ML INH SOL NEB SCH ×6 (02:13→22:22)
[2023-01-31] MEDS: hydrALAZINE HCL 25 MG TAB PO SCH ×3 (05:19→21:10)
[2023-01-31] MEDS: cloNIDine HCL 0.1 MG TAB PO PRN ×2 (06:29→12:29)
[2023-01-31] MEDS: ACCU-CHEK COMFORT CURVE STRIP VI SCH ×4 (06:29→21:14)
[2023-01-31] MEDS: InsuLIN REG 1unit/0.01ml Soln (100units/ml) SC SCH ×4 (06:29→21:42)
[2023-01-31] MEDS: PANTOPRAZOLE 40 MG/10 ML VIAL INJ IV SCH (09:30)
[2023-01-31] MEDS: ATORVASTATIN 20 MG TAB PO SCH (09:31)
[2023-01-31] MEDS: NIFEdipine ER 30 MG TAB PO SCH (09:31)
[2023-01-31] MEDS: SEVELAMER 800 MG TAB PO SCH ×4 (09:31→17:12)
[2023-01-31] MEDS: hydrALAZINE HCL 20 MG/ML VL IV PRN (09:31)
[2023-01-31] MEDS: HYDROCORTISONE ACET 25 MG RECTAL SUPP PR SCH ×2 (09:32→21:13)
[2023-01-31] MEDS: METOPROLOL SUCCINATE XL 50 MG TAB PO SCH (09:32)
[2023-01-31] MEDS: SODIUM FERR GLUC 62.5MG/5ML 125 MG in SODIUM CHL 0.9% 100 ML IV SCH (12:30)
[2023-01-31] MEDS ORDERED: BUMETANIDE 1 MG TAB PO ONE (18:15)
[2023-02-01] VITALS (7 sets, daily range): BP systolic 114–167; BP diastolic 45–76
[2023-02-01] MEDS: ALBUTEROL SULF 2.5 MG/0.5ML(0.5%) NEB SOLN NEB SCH ×6 (02:27→22:19)
[2023-02-01] MEDS: IPRATROPIUM BROM 0.5 MG/2.5ML INH SOL NEB SCH ×6 (02:27→22:19)
[2023-02-01] MEDS: BUMETANIDE 1 MG TAB PO SCH ×2 (05:01→17:38)
[2023-02-01] MEDS: hydrALAZINE HCL 25 MG TAB PO SCH ×3 (05:01→21:23)
[2023-02-01] MEDS: InsuLIN REG 1unit/0.01ml Soln (100units/ml) SC SCH ×4 (06:14→21:49)
[2023-02-01] MEDS: ACCU-CHEK COMFORT CURVE STRIP VI SCH ×4 (06:15→21:26)
[2023-02-01 06:31] LABS: Basophils # (auto) 0.1 10 ^3/uL (0-0.2); Eosinophils # (auto) 0.3 10 ^3/uL (0-0.8); Eosinophils % (auto) 3.8 % (0.0-7.0); Neutrophils # (auto) 5.9 10 ^3/uL (1.6-8.6); White Blood Cell 7.3 10^3/uL (4.4-10.8)
[2023-02-01 06:32] LABS: Basophils % (auto) 1.1 % (0.0-2.0); Hematocrit 22.3 % (41.0-53.0); Hemoglobin 7.6 g/dL (13.5-17.5); Lymphocytes # (auto) 0.6 10 ^3/uL (0.4-5.4); Lymphocytes % (auto) 7.7 % (10.0-50.0); Mean Corpuscular Hemoglobin 30.2 pg (28.0-32.0); Mean Corpuscular Hgb Conc. 34.3 g/dL (32.0-36.0); Mean Corpuscular Volume 88.1 fL (80.0-100.0); Monocytes # (auto) 0.5 10 ^3/uL (0-1.3); Monocytes % (auto) 7.3 % (0.0-12.0); Neutrophils % (auto) 80.1 % (37.0-80.0); Nucleated Red Blood Cells % 0.3 %; Red Blood Cells 2.53 10^6/uL (4.5-5.90)
[2023-02-01 06:50] LABS: Calcium 8.8 mg/dL (8.5-10.1); Potassium 5.5 mmol/L (3.5-5.1)
[2023-02-01 06:54] LABS: BUN/Creatinine Ratio 6.1 (10.0-20.0)
[2023-02-01] MEDS: HYDROCORTISONE ACET 25 MG RECTAL SUPP PR SCH ×2 (10:00→22:42)
[2023-02-01] MEDS: SODIUM FERR GLUC 62.5MG/5ML 125 MG in SODIUM CHL 0.9% 100 ML IV SCH (11:54)
[2023-02-01] MEDS: PANTOPRAZOLE 40 MG/10 ML VIAL INJ IV SCH (14:47)
[2023-02-01] MEDS: NIFEdipine ER 30 MG TAB PO SCH (14:49)
[2023-02-01] MEDS: METOPROLOL SUCCINATE XL 50 MG TAB PO SCH (14:49)
[2023-02-01] MEDS: ATORVASTATIN 20 MG TAB PO SCH (14:49)
[2023-02-01] MEDS: SEVELAMER 800 MG TAB PO SCH ×2 (14:50→17:38)
[2023-02-01] MEDS: cloNIDine HCL 0.1 MG TAB PO PRN (18:23)
[2023-02-01] MEDS ORDERED: EPOETIN ALFA-EPBX 10,000 UNIT/1ML VIAL SC ONE (21:00)
[2023-02-02] MEDS: IPRATROPIUM BROM 0.5 MG/2.5ML INH SOL NEB SCH ×6 (02:26→21:58)
[2023-02-02] MEDS: ALBUTEROL SULF 2.5 MG/0.5ML(0.5%) NEB SOLN NEB SCH ×6 (02:26→21:58)
[2023-02-02 05:00] VITALS: BP 123/53
[2023-02-02] MEDS: BUMETANIDE 1 MG TAB PO SCH ×2 (05:02→17:35)
[2023-02-02] MEDS: hydrALAZINE HCL 25 MG TAB PO SCH ×3 (05:03→21:46)
[2023-02-02] MEDS: ACCU-CHEK COMFORT CURVE STRIP VI SCH ×4 (06:09→21:46)
[2023-02-02] MEDS: InsuLIN REG 1unit/0.01ml Soln (100units/ml) SC SCH ×4 (06:09→21:48)
[2023-02-02] MEDS: SEVELAMER 800 MG TAB PO SCH ×3 (09:18→17:35)
[2023-02-02] MEDS: PANTOPRAZOLE 40 MG/10 ML VIAL INJ IV SCH (09:19)
[2023-02-02] MEDS: NIFEdipine ER 30 MG TAB PO SCH (09:19)
[2023-02-02] MEDS: HYDROCORTISONE ACET 25 MG RECTAL SUPP PR SCH ×2 (09:20→21:47)
[2023-02-02] MEDS: METOPROLOL SUCCINATE XL 50 MG TAB PO SCH (09:20)
[2023-02-02] MEDS: ATORVASTATIN 20 MG TAB PO SCH (09:21)
[2023-02-02] MEDS: hydrALAZINE HCL 20 MG/ML VL IV PRN (12:22)
[2023-02-02 13:06] VITALS: BP 181/76
[2023-02-02 17:05] VITALS: BP 190/79
[2023-02-02] MEDS: DOCUSATE SOD 100 MG CAP PO PRN (17:09)
[2023-02-02] MEDS: cloNIDine HCL 0.1 MG TAB PO PRN (17:09)
[2023-02-02 22:00] VITALS: BP 159/54
[2023-02-03] MEDS: HYDROCORTISONE ACET 25 MG RECTAL SUPP PR SCH ×2 (00:22→09:46)
[2023-02-03] MEDS: ALBUTEROL SULF 2.5 MG/0.5ML(0.5%) NEB SOLN NEB SCH ×5 (02:04→19:13)
[2023-02-03] MEDS: IPRATROPIUM BROM 0.5 MG/2.5ML INH SOL NEB SCH ×5 (02:04→19:13)
[2023-02-03 05:00] VITALS: BP 148/59
[2023-02-03] MEDS: BUMETANIDE 1 MG TAB PO SCH ×2 (06:52→17:55)
[2023-02-03] MEDS: ACCU-CHEK COMFORT CURVE STRIP VI SCH ×4 (06:53→22:59)
[2023-02-03] MEDS: hydrALAZINE HCL 25 MG TAB PO SCH ×2 (06:53→14:22)
[2023-02-03] MEDS: InsuLIN REG 1unit/0.01ml Soln (100units/ml) SC SCH ×4 (06:53→23:01)
[2023-02-03 06:56] LABS: BUN/Creatinine Ratio 6.7 (10.0-20.0); Calcium 9.1 mg/dL (8.5-10.1); Potassium 5.4 mmol/L (3.5-5.1)
[2023-02-03 08:00] VITALS: BP 177/61
[2023-02-03] MEDS: SEVELAMER 800 MG TAB PO SCH ×3 (08:27→17:55)
[2023-02-03 09:00] VITALS: BP 177/61
[2023-02-03] MEDS: PANTOPRAZOLE 40 MG/10 ML VIAL INJ IV SCH (09:41)
[2023-02-03] MEDS: ATORVASTATIN 20 MG TAB PO SCH (09:42)
[2023-02-03] MEDS: DOCUSATE SOD 100 MG CAP PO PRN (09:43)
[2023-02-03] MEDS: NIFEdipine ER 30 MG TAB PO SCH (09:44)
[2023-02-03] MEDS: METOPROLOL SUCCINATE XL 50 MG TAB PO SCH (09:45)
[2023-02-03] MEDS ORDERED: LACTULOSE 20Gm/30ML SOLN PO ONE (11:15)
[2023-02-03 13:00] VITALS: BP 150/73
[2023-02-03] MEDS ORDERED: SODIUM ZIRCONIUM CYCL 10 GM PAK PO ONE (15:15)
[2023-02-03 17:00] VITALS: BP 136/86
[2023-02-03] MEDS: ALBUMIN 25% 100 ML IV SCH ×2 (21:00→22:00)
[2023-02-03] MEDS ORDERED: ALBUMIN 25% 100 ML IV SCH (21:00)
[2023-02-03] MEDS: cloNIDine HCL 0.1 MG TAB PO PRN (21:50)
[2023-02-03 22:00] VITALS: BP 156/72
[2023-02-03] MEDS ORDERED: EPOETIN ALFA-EPBX 10,000 UNIT/1ML VIAL SC ONE (22:30)
[2023-02-03] MEDS: hydrALAZINE HCL 20 MG/ML VL IV PRN (22:42)
[2023-02-04] MEDS: hydrALAZINE HCL 25 MG TAB PO SCH ×4 (00:22→22:34)
[2023-02-04] MEDS: ALBUTEROL SULF 2.5 MG/0.5ML(0.5%) NEB SOLN NEB SCH ×4 (00:40→19:33)
[2023-02-04] MEDS: IPRATROPIUM BROM 0.5 MG/2.5ML INH SOL NEB SCH ×4 (00:40→19:33)
[2023-02-04 05:00] VITALS: BP 164/73
[2023-02-04 06:07] LABS: Calcium 8.5 mg/dL (8.5-10.1); Potassium 4.7 mmol/L (3.5-5.1)
[2023-02-04 06:09] LABS: BUN/Creatinine Ratio 6.3 (10.0-20.0)
[2023-02-04 06:22] LABS: Eosinophils # (auto) 0.3 10 ^3/uL (0-0.8); Lymphocytes # (auto) 0.4 10 ^3/uL (0.4-5.4); Lymphocytes % (auto) 8.5 % (10.0-50.0); Neutrophils # (auto) 3.6 10 ^3/uL (1.6-8.6); Nucleated Red Blood Cells % 0.1 %
[2023-02-04 06:25] LABS: Basophils # (auto) 0.1 10 ^3/uL (0-0.2); Basophils % (auto) 1.1 % (0.0-2.0); Eosinophils % (auto) 5.3 % (0.0-7.0); Hemoglobin 7.3 g/dL (13.5-17.5); Mean Corpuscular Hemoglobin 29.9 pg (28.0-32.0); Mean Corpuscular Hgb Conc. 33.3 g/dL (32.0-36.0); Mean Corpuscular Volume 89.5 fL (80.0-100.0); Monocytes # (auto) 0.7 10 ^3/uL (0-1.3); Neutrophils % (auto) 72.1 % (37.0-80.0); Red Blood Cells 2.46 10^6/uL (4.5-5.90); Red Cell Distribution Width 18.2 % (11.8-14.3)
[2023-02-04] MEDS: BUMETANIDE 1 MG TAB PO SCH ×2 (06:30→18:22)
[2023-02-04] MEDS: ACCU-CHEK COMFORT CURVE STRIP VI SCH ×4 (06:31→22:36)
[2023-02-04] MEDS: InsuLIN REG 1unit/0.01ml Soln (100units/ml) SC SCH ×4 (06:32→22:42)
[2023-02-04 08:00] VITALS: BP 159/44
[2023-02-04] MEDS: SEVELAMER 800 MG TAB PO SCH ×3 (08:23→18:20)
[2023-02-04 09:00] VITALS: BP 159/44
[2023-02-04] MEDS: PANTOPRAZOLE 40 MG/10 ML VIAL INJ IV SCH (09:36)
[2023-02-04] MEDS: NIFEdipine ER 30 MG TAB PO SCH (09:38)
[2023-02-04] MEDS: METOPROLOL SUCCINATE XL 50 MG TAB PO SCH (09:38)
[2023-02-04] MEDS: ATORVASTATIN 20 MG TAB PO SCH (09:38)
[2023-02-04] MEDS: HYDROCORTISONE ACET 25 MG RECTAL SUPP PR SCH ×2 (09:39→22:35)
[2023-02-04] MEDS: hydrALAZINE HCL 20 MG/ML VL IV PRN ×2 (12:45→18:22)
[2023-02-04] MEDS ORDERED: BUMETANIDE 2.5mg/10ml (0.25 mg/ml) INJ IV ONE (13:45)
[2023-02-04 15:31] VITALS: BP 160/57
[2023-02-04 16:00] LABS: INR 1.03 (0.9-1.15); Partial Thromboplastin Time 21.8 sec (24.6-33.4)
[2023-02-04 17:00] VITALS: BP 171/74
[2023-02-04 22:00] VITALS: BP 156/53
[2023-02-05] MEDS: ALBUTEROL SULF 2.5 MG/0.5ML(0.5%) NEB SOLN NEB SCH ×4 (00:15→18:29)
[2023-02-05] MEDS: IPRATROPIUM BROM 0.5 MG/2.5ML INH SOL NEB SCH ×4 (00:15→18:29)
[2023-02-05 05:00] VITALS: BP 150/53
[2023-02-05 05:48] LABS: Basophils # (auto) 0 10 ^3/uL (0-0.2); Basophils % (auto) 0.7 % (0.0-2.0); Hemoglobin 7.8 g/dL (13.5-17.5); Lymphocytes # (auto) 0.4 10 ^3/uL (0.4-5.4); Monocytes # (auto) 0.6 10 ^3/uL (0-1.3); Monocytes % (auto) 9.6 % (0.0-12.0); White Blood Cell 6.1 10^3/uL (4.4-10.8)
[2023-02-05 05:50] LABS: Eosinophils # (auto) 0.2 10 ^3/uL (0-0.8); Eosinophils % (auto) 3.4 % (0.0-7.0); Hematocrit 23.5 % (41.0-53.0); Mean Corpuscular Hemoglobin 29.6 pg (28.0-32.0); Mean Corpuscular Hgb Conc. 33.2 g/dL (32.0-36.0); Mean Corpuscular Volume 89.2 fL (80.0-100.0); Neutrophils # (auto) 4.9 10 ^3/uL (1.6-8.6); Neutrophils % (auto) 80.3 % (37.0-80.0); Red Blood Cells 2.64 10^6/uL (4.5-5.90); Red Cell Distribution Width 18.4 % (11.8-14.3)
[2023-02-05 06:06] LABS: Potassium 5.4 mmol/L (3.5-5.1)
[2023-02-05 06:17] LABS: BUN/Creatinine Ratio 6.5 (10.0-20.0)
[2023-02-05] MEDS: ACCU-CHEK COMFORT CURVE STRIP VI SCH ×4 (06:33→22:53)
[2023-02-05] MEDS: InsuLIN REG 1unit/0.01ml Soln (100units/ml) SC SCH ×4 (06:33→22:53)
[2023-02-05] MEDS: BUMETANIDE 2.5mg/10ml (0.25 mg/ml) INJ IV SCH ×2 (06:33→17:54)
[2023-02-05] MEDS: hydrALAZINE HCL 25 MG TAB PO SCH ×3 (06:34→22:51)
[2023-02-05 08:15] VITALS: BP 138/51
[2023-02-05] MEDS: SEVELAMER 800 MG TAB PO SCH ×3 (08:31→17:52)
[2023-02-05 09:00] VITALS: BP 138/51
[2023-02-05] MEDS: PANTOPRAZOLE 40 MG/10 ML VIAL INJ IV SCH (10:18)
[2023-02-05] MEDS: NIFEdipine ER 30 MG TAB PO SCH (10:19)
[2023-02-05] MEDS: HYDROCORTISONE ACET 25 MG RECTAL SUPP PR SCH ×2 (10:19→22:51)
[2023-02-05] MEDS: METOPROLOL SUCCINATE XL 50 MG TAB PO SCH (10:20)
[2023-02-05] MEDS: ATORVASTATIN 20 MG TAB PO SCH (10:21)
[2023-02-05] MEDS: cloNIDine HCL 0.1 MG TAB PO PRN (12:50)
[2023-02-05 13:00] VITALS: BP 187/82
[2023-02-05] MEDS: hydrALAZINE HCL 20 MG/ML VL IV PRN (16:54)
[2023-02-05 17:18] VITALS: BP 182/66
[2023-02-05 22:00] VITALS: BP 138/60
[2023-02-06] MEDS: ALBUTEROL SULF 2.5 MG/0.5ML(0.5%) NEB SOLN NEB SCH ×4 (00:17→18:53)
[2023-02-06] MEDS: IPRATROPIUM BROM 0.5 MG/2.5ML INH SOL NEB SCH ×4 (00:17→18:53)
[2023-02-06 05:00] VITALS: BP 161/48
[2023-02-06] MEDS: BUMETANIDE 2.5mg/10ml (0.25 mg/ml) INJ IV SCH ×2 (06:34→18:47)
[2023-02-06] MEDS: hydrALAZINE HCL 25 MG TAB PO SCH ×3 (06:34→22:43)
[2023-02-06 06:42] LABS: Calcium 9.2 mg/dL (8.5-10.1); Potassium 5.5 mmol/L (3.5-5.1)
[2023-02-06 06:47] LABS: BUN/Creatinine Ratio 7.7 (10.0-20.0)
[2023-02-06] MEDS: InsuLIN REG 1unit/0.01ml Soln (100units/ml) SC SCH ×4 (06:51→22:00)
[2023-02-06] MEDS: ACCU-CHEK COMFORT CURVE STRIP VI SCH ×4 (06:52→22:04)
[2023-02-06] MEDS ORDERED: SODIUM CHL 0.9% 1000 ML BAG XX ONE (07:00)
[2023-02-06 08:00] VITALS: BP 186/77
[2023-02-06 09:00] VITALS: BP 186/77
[2023-02-06] MEDS: HYDROCORTISONE ACET 25 MG RECTAL SUPP PR SCH ×2 (10:00→22:46)
[2023-02-06] MEDS: SEVELAMER 800 MG TAB PO SCH ×3 (10:26→18:47)
[2023-02-06] MEDS: NIFEdipine ER 30 MG TAB PO SCH (10:27)
[2023-02-06] MEDS: METOPROLOL SUCCINATE XL 50 MG TAB PO SCH (10:27)
[2023-02-06] MEDS: ATORVASTATIN 20 MG TAB PO SCH (10:27)
[2023-02-06] MEDS: PANTOPRAZOLE 40 MG/10 ML VIAL INJ IV SCH (10:28)
[2023-02-06 12:00] VITALS: BP 195/73
[2023-02-06] MEDS ORDERED: cloNIDine HCL 0.1 MG TAB PO ONE (14:00)
[2023-02-06 16:00] VITALS: BP 184/73
[2023-02-06] MEDS ORDERED: EPOETIN ALFA-EPBX 10,000 UNIT/1ML VIAL SC ONE (21:00)
[2023-02-06 22:00] VITALS: BP 171/62
[2023-02-06] MEDS: cloNIDine HCL 0.1 MG TAB PO PRN (22:44)
[2023-02-07] MEDS: ALBUTEROL SULF 2.5 MG/0.5ML(0.5%) NEB SOLN NEB SCH ×4 (00:59→18:51)
[2023-02-07] MEDS: IPRATROPIUM BROM 0.5 MG/2.5ML INH SOL NEB SCH ×4 (00:59→18:51)
[2023-02-07] MEDS: InsuLIN REG 1unit/0.01ml Soln (100units/ml) SC SCH ×4 (06:04→22:17)
[2023-02-07] MEDS: ACCU-CHEK COMFORT CURVE STRIP VI SCH ×4 (06:04→22:07)
[2023-02-07] MEDS: BUMETANIDE 2.5mg/10ml (0.25 mg/ml) INJ IV SCH ×2 (06:20→17:19)
[2023-02-07] MEDS: hydrALAZINE HCL 25 MG TAB PO SCH ×3 (06:21→22:06)
[2023-02-07] MEDS: cloNIDine HCL 0.1 MG TAB PO PRN ×2 (06:21→11:56)
[2023-02-07 06:34] LABS: BUN/Creatinine Ratio 8.2 (10.0-20.0); Calcium 8.9 mg/dL (8.5-10.1); Potassium 5.3 mmol/L (3.5-5.1)
[2023-02-07 08:00] VITALS: BP 205/42
[2023-02-07] MEDS: PANTOPRAZOLE 40 MG/10 ML VIAL INJ IV SCH (08:33)
[2023-02-07] MEDS: SEVELAMER 800 MG TAB PO SCH ×3 (08:33→17:18)
[2023-02-07] MEDS: ATORVASTATIN 20 MG TAB PO SCH (08:34)
[2023-02-07] MEDS: HYDROCORTISONE ACET 25 MG RECTAL SUPP PR SCH ×2 (08:34→22:07)
[2023-02-07] MEDS: METOPROLOL SUCCINATE XL 50 MG TAB PO SCH (08:34)
[2023-02-07] MEDS: NIFEdipine ER 30 MG TAB PO SCH (08:34)
[2023-02-07 08:46] VITALS: BP 185/64
[2023-02-07 09:00] VITALS: BP 205/42
[2023-02-07 12:37] VITALS: BP 194/75
[2023-02-07] MEDS: hydrALAZINE HCL 20 MG/ML VL IV PRN (14:45)
[2023-02-07 16:36] LABS: Basophils # (auto) 0.1 10 ^3/uL (0-0.2); Basophils % (auto) 1.4 % (0.0-2.0); Eosinophils # (auto) 0.2 10 ^3/uL (0-0.8); Lymphocytes # (auto) 0.3 10 ^3/uL (0.4-5.4); Mean Corpuscular Hemoglobin 29.4 pg (28.0-32.0); Monocytes # (auto) 0.6 10 ^3/uL (0-1.3); Nucleated Red Blood Cells % 0.1 %; Red Blood Cells 2.72 10^6/uL (4.5-5.90)
[2023-02-07 16:38] LABS: Eosinophils % (auto) 3.8 % (0.0-7.0); Hematocrit 24.5 % (41.0-53.0); Lymphocytes % (auto) 6.9 % (10.0-50.0); Mean Corpuscular Hgb Conc. 32.6 g/dL (32.0-36.0); Mean Corpuscular Volume 90.2 fL (80.0-100.0); Monocytes % (auto) 12.3 % (0.0-12.0); Neutrophils # (auto) 3.6 10 ^3/uL (1.6-8.6); Neutrophils % (auto) 75.6 % (37.0-80.0); Red Cell Distribution Width 17.7 % (11.8-14.3); White Blood Cell 4.8 10^3/uL (4.4-10.8)
[2023-02-07 17:00] VITALS: BP 192/73
[2023-02-07] MEDS ORDERED: EPOETIN ALFA-EPBX 10,000 UNIT/1ML VIAL SC ONE (21:00)
[2023-02-07 22:00] VITALS: BP 140/50
[2023-02-08] MEDS: IPRATROPIUM BROM 0.5 MG/2.5ML INH SOL NEB SCH ×4 (00:33→18:58)
[2023-02-08] MEDS: ALBUTEROL SULF 2.5 MG/0.5ML(0.5%) NEB SOLN NEB SCH ×4 (00:33→18:58)
[2023-02-08 05:00] VITALS: BP 186/58
[2023-02-08] MEDS: hydrALAZINE HCL 25 MG TAB PO SCH ×3 (05:22→22:12)
[2023-02-08] MEDS: cloNIDine HCL 0.1 MG TAB PO PRN ×3 (05:22→17:30)
[2023-02-08] MEDS: BUMETANIDE 2.5mg/10ml (0.25 mg/ml) INJ IV SCH ×2 (05:26→17:33)
[2023-02-08] MEDS: ACCU-CHEK COMFORT CURVE STRIP VI SCH ×4 (06:03→22:00)
[2023-02-08] MEDS: InsuLIN REG 1unit/0.01ml Soln (100units/ml) SC SCH ×4 (06:03→22:21)
[2023-02-08 07:08] LABS: Potassium 5.5 mmol/L (3.5-5.1)
[2023-02-08 07:20] LABS: BUN/Creatinine Ratio 7.1 (10.0-20.0); Calcium 8.8 mg/dL (8.5-10.1)
[2023-02-08 09:00] VITALS: BP 152/68
[2023-02-08] MEDS: PANTOPRAZOLE 40 MG/10 ML VIAL INJ IV SCH (09:04)
[2023-02-08] MEDS: SEVELAMER 800 MG TAB PO SCH ×3 (09:05→17:30)
[2023-02-08] MEDS: METOPROLOL SUCCINATE XL 50 MG TAB PO SCH (09:05)
[2023-02-08] MEDS: ATORVASTATIN 20 MG TAB PO SCH (09:05)
[2023-02-08] MEDS: NIFEdipine ER 30 MG TAB PO SCH (09:06)
[2023-02-08] MEDS: HYDROCORTISONE ACET 25 MG RECTAL SUPP PR SCH ×2 (09:07→22:19)
[2023-02-08] MEDS ORDERED: SODIUM ZIRCONIUM CYCL 10 GM PAK PO ONE (12:15)
[2023-02-08] MEDS: hydrALAZINE HCL 20 MG/ML VL IV PRN ×2 (12:50→17:34)
[2023-02-08 13:00] VITALS: BP 176/78
[2023-02-08 17:00] VITALS: BP 171/81
[2023-02-08 22:00] VITALS: BP 172/62
[2023-02-09] MEDS: ALBUTEROL SULF 2.5 MG/0.5ML(0.5%) NEB SOLN NEB SCH ×4 (00:18→18:53)
[2023-02-09] MEDS: IPRATROPIUM BROM 0.5 MG/2.5ML INH SOL NEB SCH ×4 (00:18→18:53)
[2023-02-09 05:00] VITALS: BP 173/59
[2023-02-09] MEDS: BUMETANIDE 2.5mg/10ml (0.25 mg/ml) INJ IV SCH ×2 (06:20→17:16)
[2023-02-09] MEDS: hydrALAZINE HCL 25 MG TAB PO SCH ×3 (06:20→21:14)
[2023-02-09] MEDS: InsuLIN REG 1unit/0.01ml Soln (100units/ml) SC SCH ×4 (06:29→21:33)
[2023-02-09] MEDS: ACCU-CHEK COMFORT CURVE STRIP VI SCH ×4 (06:30→21:30)
[2023-02-09 06:58] LABS: Hematocrit 23.1 % (41.0-53.0); Hemoglobin 7.7 g/dL (13.5-17.5)
[2023-02-09 07:08] LABS: BUN/Creatinine Ratio 8.8 (10.0-20.0); Calcium 8.7 mg/dL (8.5-10.1)
[2023-02-09 07:16] LABS: Potassium 5.7 mmol/L (3.5-5.1)
[2023-02-09] MEDS: SODIUM CHL 0.9% 1000 ML BAG XX ONE ×2 (08:00→16:53)
[2023-02-09 08:05] VITALS: BP 192/74
[2023-02-09] MEDS: SEVELAMER 800 MG TAB PO SCH ×3 (09:35→17:17)
[2023-02-09] MEDS: PANTOPRAZOLE 40 MG/10 ML VIAL INJ IV SCH (09:35)
[2023-02-09] MEDS: ATORVASTATIN 20 MG TAB PO SCH (09:36)
[2023-02-09] MEDS: HYDROCORTISONE ACET 25 MG RECTAL SUPP PR SCH ×2 (09:37→21:15)
[2023-02-09] MEDS: NIFEdipine ER 30 MG TAB PO SCH (10:00)
[2023-02-09] MEDS: METOPROLOL SUCCINATE XL 50 MG TAB PO SCH (10:00)
[2023-02-09] MEDS ORDERED: SODIUM ZIRCONIUM CYCL 10 GM PAK PO ONE (11:00)
[2023-02-09 13:00] VITALS: BP 206/61
[2023-02-09] MEDS ORDERED: DOXYCYCLINE 100MG/250ML 250 ML IV SCH (14:30)
[2023-02-09] MEDS: ALBUMIN 25% 100 ML IV SCH (14:43)
[2023-02-09 17:00] VITALS: BP 190/69
[2023-02-09] MEDS: DOXYCYCLINE 100MG/250ML 250 ML IV SCH (17:10)
[2023-02-09] MEDS: hydrALAZINE HCL 20 MG/ML VL IV PRN ×2 (17:16→23:11)
[2023-02-09 18:00] VITALS: BP 117/57
[2023-02-09] MEDS ORDERED: EPOETIN ALFA-EPBX 10,000 UNIT/1ML VIAL SC ONE (21:00)
[2023-02-09] MEDS: OSELTAMIVIR 75 MG CAP PO SCH (21:14)
[2023-02-09 22:00] VITALS: BP 217/57
[2023-02-09] MEDS ORDERED: DOXYCYCLINE 100 MG TAB/CAP PO SCH (22:00)
[2023-02-10] MEDS: cloNIDine HCL 0.1 MG TAB PO PRN (00:09)
[2023-02-10] MEDS: ALBUTEROL SULF 2.5 MG/0.5ML(0.5%) NEB SOLN NEB SCH ×4 (00:42→19:34)
[2023-02-10] MEDS: IPRATROPIUM BROM 0.5 MG/2.5ML INH SOL NEB SCH ×4 (00:42→19:35)
[2023-02-10] MEDS ORDERED: NIFEdipine ER 30 MG TAB PO ONE (02:15)
[2023-02-10] MEDS: hydrALAZINE HCL 20 MG/ML VL IV PRN (04:40)
[2023-02-10] MEDS: DOXYCYCLINE 100MG/250ML 250 ML IV SCH ×2 (04:41→18:30)
[2023-02-10 05:00] VITALS: BP 226/77
[2023-02-10] MEDS: BUMETANIDE 2.5mg/10ml (0.25 mg/ml) INJ IV SCH ×2 (05:49→19:12)
[2023-02-10] MEDS: hydrALAZINE HCL 25 MG TAB PO SCH ×3 (05:53→23:37)
[2023-02-10] MEDS: ACCU-CHEK COMFORT CURVE STRIP VI SCH ×4 (06:19→23:38)
[2023-02-10] MEDS: InsuLIN REG 1unit/0.01ml Soln (100units/ml) SC SCH ×4 (06:19→22:00)
[2023-02-10 06:20] LABS: BUN/Creatinine Ratio 8.1 (10.0-20.0); Calcium 8.6 mg/dL (8.5-10.1); Potassium 4.8 mmol/L (3.5-5.1)
[2023-02-10] MEDS: SEVELAMER 800 MG TAB PO SCH ×3 (08:00→19:03)
[2023-02-10 09:00] VITALS: BP 146/55
[2023-02-10] MEDS ORDERED: guaiFENesin-DM 100/10mg/5ml SYR PO PRN (11:00)
[2023-02-10] MEDS ORDERED: LOSARTAN POTASSIUM 50 MG TAB PO ONE (11:15)
[2023-02-10] MEDS: ATORVASTATIN 20 MG TAB PO SCH (11:34)
[2023-02-10] MEDS: PANTOPRAZOLE 40 MG/10 ML VIAL INJ IV SCH (11:35)
[2023-02-10] MEDS: OSELTAMIVIR 75 MG CAP PO SCH ×2 (11:35→23:36)
[2023-02-10 11:39] VITALS: BP 146/55
[2023-02-10] MEDS: NIFEdipine ER 30 MG TAB PO SCH ×2 (11:43→22:00)
[2023-02-10] MEDS: METOPROLOL SUCCINATE XL 50 MG TAB PO SCH (11:44)
[2023-02-10] MEDS: HYDROCORTISONE ACET 25 MG RECTAL SUPP PR SCH ×2 (11:45→23:38)
[2023-02-10] MEDS: ISOSORBIDE MONONITRATE ER 60 MG TAB PO SCH (11:48)
[2023-02-10 13:00] VITALS: BP 138/73
[2023-02-10 17:00] VITALS: BP 146/83
[2023-02-10 22:00] VITALS: BP 125/58
[2023-02-10] MEDS: guaiFENesin-DM 100/10mg/5ml SYR PO PRN (23:38)
[2023-02-11] MEDS: IPRATROPIUM BROM 0.5 MG/2.5ML INH SOL NEB SCH ×4 (00:22→19:05)
[2023-02-11] MEDS: ALBUTEROL SULF 2.5 MG/0.5ML(0.5%) NEB SOLN NEB SCH ×4 (00:23→19:05)
[2023-02-11 05:00] VITALS: BP 173/74
[2023-02-11] MEDS: DOXYCYCLINE 100MG/250ML 250 ML IV SCH ×2 (05:01→17:31)
[2023-02-11] MEDS: hydrALAZINE HCL 20 MG/ML VL IV PRN ×3 (05:06→18:34)
[2023-02-11] MEDS ORDERED: SODIUM CHL 0.9% 1000 ML BAG XX ONE (07:00)
[2023-02-11] MEDS: ACCU-CHEK COMFORT CURVE STRIP VI SCH ×4 (07:06→22:47)
[2023-02-11 07:09] LABS: BUN/Creatinine Ratio 8.5 (10.0-20.0); Calcium 8.7 mg/dL (8.5-10.1); Potassium 5.2 mmol/L (3.5-5.1)
[2023-02-11] MEDS: BUMETANIDE 2.5mg/10ml (0.25 mg/ml) INJ IV SCH ×2 (07:10→18:08)
[2023-02-11] MEDS: hydrALAZINE HCL 25 MG TAB PO SCH ×3 (07:10→23:01)
[2023-02-11] MEDS: InsuLIN REG 1unit/0.01ml Soln (100units/ml) SC SCH ×4 (07:15→22:53)
[2023-02-11] MEDS: SEVELAMER 800 MG TAB PO SCH ×3 (08:30→18:08)
[2023-02-11] MEDS: cloNIDine HCL 0.1 MG TAB PO PRN (08:43)
[2023-02-11 09:00] VITALS: BP 184/66
[2023-02-11] MEDS: OSELTAMIVIR 75 MG CAP PO SCH ×2 (10:17→23:02)
[2023-02-11] MEDS: ATORVASTATIN 20 MG TAB PO SCH (10:19)
[2023-02-11] MEDS: PANTOPRAZOLE 40 MG/10 ML VIAL INJ IV SCH (10:19)
[2023-02-11] MEDS: NIFEdipine ER 30 MG TAB PO SCH ×2 (10:20→23:02)
[2023-02-11] MEDS: ISOSORBIDE MONONITRATE ER 60 MG TAB PO SCH (10:20)
[2023-02-11] MEDS: METOPROLOL SUCCINATE XL 50 MG TAB PO SCH (10:21)
[2023-02-11] MEDS: LOSARTAN POTASSIUM 50 MG TAB PO SCH (10:22)
[2023-02-11] MEDS: HYDROCORTISONE ACET 25 MG RECTAL SUPP PR SCH ×2 (10:22→23:03)
[2023-02-11 13:00] VITALS: BP 174/48
[2023-02-11 17:00] VITALS: BP 175/55
[2023-02-11] MEDS ORDERED: EPOETIN ALFA-EPBX 10,000 UNIT/1ML VIAL SC ONE (21:00)
[2023-02-11 22:00] VITALS: BP 140/60
[2023-02-11] MEDS: guaiFENesin-DM 100/10mg/5ml SYR PO PRN (23:01)
[2023-02-12] MEDS: ALBUTEROL SULF 2.5 MG/0.5ML(0.5%) NEB SOLN NEB SCH ×5 (00:15→23:53)
[2023-02-12] MEDS: IPRATROPIUM BROM 0.5 MG/2.5ML INH SOL NEB SCH ×5 (00:15→23:53)
[2023-02-12 05:00] VITALS: BP 151/46
[2023-02-12] MEDS: DOXYCYCLINE 100MG/250ML 250 ML IV SCH ×2 (05:13→16:48)
[2023-02-12] MEDS: BUMETANIDE 2.5mg/10ml (0.25 mg/ml) INJ IV SCH ×2 (05:32→17:47)
[2023-02-12] MEDS: hydrALAZINE HCL 25 MG TAB PO SCH ×3 (05:33→21:26)
[2023-02-12 05:54] LABS: Calcium 8.7 mg/dL (8.5-10.1); Potassium 5.5 mmol/L (3.5-5.1)
[2023-02-12] MEDS: ACCU-CHEK COMFORT CURVE STRIP VI SCH ×4 (06:18→21:27)
[2023-02-12] MEDS: InsuLIN REG 1unit/0.01ml Soln (100units/ml) SC SCH ×4 (06:19→21:29)
[2023-02-12 06:41] LABS: Basophils # (auto) 0 10 ^3/uL (0-0.2); Eosinophils # (auto) 0.1 10 ^3/uL (0-0.8); Lymphocytes # (auto) 0.5 10 ^3/uL (0.4-5.4)
[2023-02-12 06:44] LABS: Basophils % (auto) 0.6 % (0.0-2.0); Eosinophils % (auto) 2.7 % (0.0-7.0); Hematocrit 23.3 % (41.0-53.0); Hemoglobin 7.5 g/dL (13.5-17.5); Lymphocytes % (auto) 10.4 % (10.0-50.0); Mean Corpuscular Hemoglobin 29.3 pg (28.0-32.0); Mean Corpuscular Volume 91.7 fL (80.0-100.0); Monocytes # (auto) 0.4 10 ^3/uL (0-1.3); Monocytes % (auto) 7.6 % (0.0-12.0); Neutrophils # (auto) 3.7 10 ^3/uL (1.6-8.6); Neutrophils % (auto) 78.7 % (37.0-80.0); Red Blood Cells 2.54 10^6/uL (4.5-5.90); Red Cell Distribution Width 17.7 % (11.8-14.3); White Blood Cell 4.7 10^3/uL (4.4-10.8)
[2023-02-12] MEDS: SEVELAMER 800 MG TAB PO SCH ×3 (08:23→17:47)
[2023-02-12 09:00] VITALS: BP 149/108
[2023-02-12] MEDS: LOSARTAN POTASSIUM 50 MG TAB PO SCH (10:00)
[2023-02-12] MEDS: NIFEdipine ER 30 MG TAB PO SCH ×2 (10:00→21:27)
[2023-02-12] MEDS: ISOSORBIDE MONONITRATE ER 60 MG TAB PO SCH (10:00)
[2023-02-12] MEDS: HYDROCORTISONE ACET 25 MG RECTAL SUPP PR SCH ×2 (10:49→21:32)
[2023-02-12] MEDS: OSELTAMIVIR 75 MG CAP PO SCH ×2 (10:49→21:06)
[2023-02-12] MEDS: PANTOPRAZOLE 40 MG/10 ML VIAL INJ IV SCH (10:49)
[2023-02-12] MEDS: ATORVASTATIN 20 MG TAB PO SCH (10:50)
[2023-02-12] MEDS: METOPROLOL SUCCINATE XL 50 MG TAB PO SCH (10:50)
[2023-02-12] MEDS: guaiFENesin-DM 100/10mg/5ml SYR PO PRN ×2 (11:04→21:32)
[2023-02-12 13:00] VITALS: BP 152/44
[2023-02-12] MEDS ORDERED: SODIUM CHL 0.9% 1000 ML BAG XX ONE (13:00)
[2023-02-12 17:00] VITALS: BP 161/57
[2023-02-12] MEDS ORDERED: EPOETIN ALFA-EPBX 10,000 UNIT/1ML VIAL SC ONE (21:00)
[2023-02-12 22:00] VITALS: BP 158/78
[2023-02-13] MEDS: DOXYCYCLINE 100MG/250ML 250 ML IV SCH ×2 (04:43→16:43)
[2023-02-13 05:00] VITALS: BP 158/63
[2023-02-13] MEDS: BUMETANIDE 2.5mg/10ml (0.25 mg/ml) INJ IV SCH ×2 (05:20→17:43)
[2023-02-13] MEDS: hydrALAZINE HCL 25 MG TAB PO SCH ×3 (05:21→21:11)
[2023-02-13 06:06] VITALS: BP 158/63
[2023-02-13] MEDS: InsuLIN REG 1unit/0.01ml Soln (100units/ml) SC SCH ×4 (06:28→21:33)
[2023-02-13] MEDS: ACCU-CHEK COMFORT CURVE STRIP VI SCH ×4 (06:28→21:12)
[2023-02-13] MEDS: ALBUTEROL SULF 2.5 MG/0.5ML(0.5%) NEB SOLN NEB SCH ×3 (06:29→19:00)
[2023-02-13] MEDS: IPRATROPIUM BROM 0.5 MG/2.5ML INH SOL NEB SCH ×3 (06:29→19:00)
[2023-02-13] MEDS ORDERED: SODIUM CHL 0.9% 1000 ML BAG XX ONE (08:00)
[2023-02-13 09:00] VITALS: BP 141/49
[2023-02-13] MEDS: SEVELAMER 800 MG TAB PO SCH ×3 (09:01→17:42)
[2023-02-13 10:42] LABS: Hemoglobin 7.9 g/dL (13.5-17.5)
[2023-02-13 10:44] LABS: Hematocrit 24.2 % (41.0-53.0)
[2023-02-13] MEDS: LOSARTAN POTASSIUM 50 MG TAB PO SCH (13:23)
[2023-02-13] MEDS: ISOSORBIDE MONONITRATE ER 60 MG TAB PO SCH (13:24)
[2023-02-13] MEDS: NIFEdipine ER 30 MG TAB PO SCH ×2 (13:25→21:12)
[2023-02-13] MEDS: METOPROLOL SUCCINATE XL 50 MG TAB PO SCH (13:25)
[2023-02-13 14:00] VITALS: BP 204/81
[2023-02-13] MEDS: MINOXIDIL 2.5 MG TAB PO SCH (14:19)
[2023-02-13] MEDS: PANTOPRAZOLE 40 MG/10 ML VIAL INJ IV SCH (14:19)
[2023-02-13] MEDS: ATORVASTATIN 20 MG TAB PO SCH (14:20)
[2023-02-13] MEDS: OSELTAMIVIR 75 MG CAP PO SCH ×2 (14:20→21:11)
[2023-02-13] MEDS: HYDROCORTISONE ACET 25 MG RECTAL SUPP PR SCH ×2 (14:21→21:12)
[2023-02-13 16:00] VITALS: BP 194/60
[2023-02-13] MEDS: hydrALAZINE HCL 20 MG/ML VL IV PRN (16:39)
[2023-02-13] MEDS ORDERED: EPOETIN ALFA-EPBX 10,000 UNIT/1ML VIAL SC ONE (21:00)
[2023-02-13 22:00] VITALS: BP 193/68
[2023-02-13] MEDS: cloNIDine HCL 0.1 MG TAB PO PRN (23:28)
[2023-02-14] MEDS: ALBUTEROL SULF 2.5 MG/0.5ML(0.5%) NEB SOLN NEB SCH ×4 (00:17→19:11)
[2023-02-14] MEDS: IPRATROPIUM BROM 0.5 MG/2.5ML INH SOL NEB SCH ×4 (00:17→19:12)
[2023-02-14] MEDS: hydrALAZINE HCL 20 MG/ML VL IV PRN (01:00)
[2023-02-14 05:00] VITALS: BP 135/48
[2023-02-14] MEDS: DOXYCYCLINE 100MG/250ML 250 ML IV SCH ×2 (05:14→17:12)
[2023-02-14] MEDS: BUMETANIDE 2.5mg/10ml (0.25 mg/ml) INJ IV SCH ×2 (05:50→18:27)
[2023-02-14] MEDS: hydrALAZINE HCL 25 MG TAB PO SCH ×3 (05:50→21:34)
[2023-02-14] MEDS: InsuLIN REG 1unit/0.01ml Soln (100units/ml) SC SCH ×4 (06:13→21:35)
[2023-02-14] MEDS: ACCU-CHEK COMFORT CURVE STRIP VI SCH ×4 (06:14→21:35)
[2023-02-14 06:16] LABS: BUN/Creatinine Ratio 8.5 (10.0-20.0); Calcium 8.5 mg/dL (8.5-10.1); Potassium 4.8 mmol/L (3.5-5.1)
[2023-02-14 09:00] VITALS: BP 132/52
[2023-02-14] MEDS: PANTOPRAZOLE 40 MG/10 ML VIAL INJ IV SCH (09:29)
[2023-02-14] MEDS: MINOXIDIL 2.5 MG TAB PO SCH (09:30)
[2023-02-14] MEDS: NIFEdipine ER 30 MG TAB PO SCH ×2 (09:30→21:34)
[2023-02-14] MEDS: ISOSORBIDE MONONITRATE ER 60 MG TAB PO SCH (09:30)
[2023-02-14] MEDS: OSELTAMIVIR 75 MG CAP PO SCH (09:31)
[2023-02-14] MEDS: ATORVASTATIN 20 MG TAB PO SCH (09:31)
[2023-02-14] MEDS: SEVELAMER 800 MG TAB PO SCH ×3 (09:31→18:26)
[2023-02-14] MEDS: LOSARTAN POTASSIUM 50 MG TAB PO SCH (09:31)
[2023-02-14] MEDS: HYDROCORTISONE ACET 25 MG RECTAL SUPP PR SCH ×2 (09:31→21:34)
[2023-02-14] MEDS: METOPROLOL SUCCINATE XL 50 MG TAB PO SCH (09:32)
[2023-02-14 13:00] VITALS: BP 165/54
[2023-02-14 16:48] VITALS: BP 147/89
[2023-02-15] MEDS: IPRATROPIUM BROM 0.5 MG/2.5ML INH SOL NEB SCH ×4 (00:16→18:21)
[2023-02-15] MEDS: ALBUTEROL SULF 2.5 MG/0.5ML(0.5%) NEB SOLN NEB SCH ×4 (00:16→18:21)
[2023-02-15] MEDS: DOXYCYCLINE 100MG/250ML 250 ML IV SCH ×2 (04:25→17:56)
[2023-02-15 05:11] VITALS: BP 157/58
[2023-02-15] MEDS: hydrALAZINE HCL 25 MG TAB PO SCH ×3 (06:00→21:58)
[2023-02-15] MEDS: BUMETANIDE 2.5mg/10ml (0.25 mg/ml) INJ IV SCH ×2 (06:00→17:56)
[2023-02-15] MEDS: InsuLIN REG 1unit/0.01ml Soln (100units/ml) SC SCH ×4 (06:02→21:59)
[2023-02-15] MEDS: ACCU-CHEK COMFORT CURVE STRIP VI SCH ×4 (06:03→21:59)
[2023-02-15 09:00] VITALS: BP 167/51
[2023-02-15] MEDS ORDERED: MINOXIDIL 2.5 MG TAB PO SCH (10:00)
[2023-02-15] MEDS: NIFEdipine ER 30 MG TAB PO SCH ×2 (10:00→21:57)
[2023-02-15] MEDS: LOSARTAN POTASSIUM 50 MG TAB PO SCH (10:00)
[2023-02-15] MEDS: METOPROLOL SUCCINATE XL 50 MG TAB PO SCH (10:00)
[2023-02-15] MEDS: PANTOPRAZOLE 40 MG/10 ML VIAL INJ IV SCH (10:14)
[2023-02-15] MEDS: MINOXIDIL 2.5 MG TAB PO SCH ×2 (10:15→21:57)
[2023-02-15] MEDS: SEVELAMER 800 MG TAB PO SCH ×3 (10:15→17:56)
[2023-02-15] MEDS: ISOSORBIDE MONONITRATE ER 60 MG TAB PO SCH (10:16)
[2023-02-15] MEDS: ATORVASTATIN 20 MG TAB PO SCH (10:16)
[2023-02-15] MEDS: HYDROCORTISONE ACET 25 MG RECTAL SUPP PR SCH ×2 (10:17→21:59)
[2023-02-15] MEDS ORDERED: NIFE90TA75 PO (13:28)
[2023-02-15] MEDS ORDERED: METO1TAB9 PO (13:28)
[2023-02-15] MEDS ORDERED: MIN25T PO (13:28)
[2023-02-15] MEDS ORDERED: HYDR-4297 PO (13:28)
[2023-02-15] MEDS ORDERED: ISO60SRT PO (13:51)
[2023-02-15] MEDS: hydrALAZINE HCL 20 MG/ML VL IV PRN (16:35)
[2023-02-15 16:44] VITALS: BP 167/54
[2023-02-15] MEDS: cloNIDine HCL 0.1 MG TAB PO PRN (17:57)
[2023-02-15] MEDS ORDERED: EPOETIN ALFA-EPBX 4,000 UNIT/ML VIAL SC ONE (21:00)
[2023-02-15 22:00] VITALS: BP_SYST 165; BP_SYST 205; BP_DIAS 69; BP_DIAS 98
[2023-02-16] MEDS: IPRATROPIUM BROM 0.5 MG/2.5ML INH SOL NEB SCH ×4 (01:03→18:31)
[2023-02-16] MEDS: ALBUTEROL SULF 2.5 MG/0.5ML(0.5%) NEB SOLN NEB SCH ×4 (01:03→18:31)
[2023-02-16 05:00] VITALS: BP 158/58
[2023-02-16] MEDS: DOXYCYCLINE 100MG/250ML 250 ML IV SCH ×2 (05:04→19:29)
[2023-02-16] MEDS: BUMETANIDE 2.5mg/10ml (0.25 mg/ml) INJ IV SCH ×2 (05:09→19:28)
[2023-02-16] MEDS: hydrALAZINE HCL 25 MG TAB PO SCH ×2 (05:10→14:14)
[2023-02-16] MEDS: ACCU-CHEK COMFORT CURVE STRIP VI SCH ×3 (06:12→17:00)
[2023-02-16] MEDS: InsuLIN REG 1unit/0.01ml Soln (100units/ml) SC SCH ×3 (06:13→17:00)
[2023-02-16] MEDS: LOSARTAN POTASSIUM 50 MG TAB PO SCH (09:31)
[2023-02-16] MEDS: ISOSORBIDE MONONITRATE ER 60 MG TAB PO SCH (09:31)
[2023-02-16] MEDS: METOPROLOL SUCCINATE XL 50 MG TAB PO SCH (09:32)
[2023-02-16 09:40] VITALS: BP 158/63
[2023-02-16] MEDS: ATORVASTATIN 20 MG TAB PO SCH (09:41)
[2023-02-16] MEDS: NIFEdipine ER 30 MG TAB PO SCH (09:41)
[2023-02-16] MEDS: SEVELAMER 800 MG TAB PO SCH ×3 (09:41→19:27)
[2023-02-16] MEDS: PANTOPRAZOLE 40 MG/10 ML VIAL INJ IV SCH (09:42)
[2023-02-16] MEDS: HYDROCORTISONE ACET 25 MG RECTAL SUPP PR SCH (09:43)
[2023-02-16 09:56] VITALS: BP 177/51
[2023-02-16] MEDS: MINOXIDIL 2.5 MG TAB PO SCH (12:32)
[2023-02-16 17:01] VITALS: BP 151/48
== END 2023-02-16 21:00 | disposition home or self-care (01) | DRG 393 ==
LOC: ER 12:37 → EDBD 12:37 → TELE 16:58 → TELE-WESTW 01-21 21:30
PROVIDERS: ADMIT Nurse Practitioner Family; ATTEND Internal Medicine Geriatric Medicine
PROC: 5A1D70Z Performance of Urinary Filtration, Intermittent, Less than 6 Hours Per Day (ICD-10-PCS; 2023-01-20)
PROC: 5A1D70Z Performance of Urinary Filtration, Intermittent, Less than 6 Hours Per Day (ICD-10-PCS; 2023-01-23)
PROC: 5A1D70Z Performance of Urinary Filtration, Intermittent, Less than 6 Hours Per Day (ICD-10-PCS; 2023-01-24)
PROC: 0DJD8ZZ Inspection of Lower Intestinal Tract, Via Natural or Artificial Opening Endoscopic (ICD-10-PCS; principal; 2023-01-25 16:51)
PROC: 05HB33Z Insertion of Infusion Device into Right Basilic Vein, Percutaneous Approach (ICD-10-PCS; 2023-01-26)
PROC: B54MZZA Ultrasonography of Right Upper Extremity Veins, Guidance (ICD-10-PCS; 2023-01-26)
PROC: 5A1D70Z Performance of Urinary Filtration, Intermittent, Less than 6 Hours Per Day (ICD-10-PCS; 2023-01-28)
PROC: 5A1D70Z Performance of Urinary Filtration, Intermittent, Less than 6 Hours Per Day (ICD-10-PCS; 2023-01-31)
PROC: 5A1D70Z Performance of Urinary Filtration, Intermittent, Less than 6 Hours Per Day (ICD-10-PCS; 2023-02-02)
PROC: 5A1D70Z Performance of Urinary Filtration, Intermittent, Less than 6 Hours Per Day (ICD-10-PCS; 2023-02-06)
PROC: 5A1D70Z Performance of Urinary Filtration, Intermittent, Less than 6 Hours Per Day (ICD-10-PCS; 2023-02-09)
PROC: 5A1D70Z Performance of Urinary Filtration, Intermittent, Less than 6 Hours Per Day (ICD-10-PCS; 2023-02-10)
PROC: 5A1D70Z Performance of Urinary Filtration, Intermittent, Less than 6 Hours Per Day (ICD-10-PCS; 2023-02-14)
DX: K64.8 Other hemorrhoids (principal); I50.33 Acute on chronic diastolic (congestive) heart failure; N18.6 End stage renal disease; J96.01 Acute respiratory failure with hypoxia; I31.39 Other pericardial effusion (noninflammatory); I16.1 Hypertensive emergency; I13.2 Hypertensive heart and chronic kidney disease with heart failure and with stage 5 chronic kidney disease, or end stage renal disease; D62 Acute posthemorrhagic anemia; Z20.822 Contact with and (suspected) exposure to COVID-19; N40.0 Benign prostatic hyperplasia without lower urinary tract symptoms; D63.8 Anemia in other chronic diseases classified elsewhere; J10.1 Influenza due to other identified influenza virus with other respiratory manifestations; I27.20 Pulmonary hypertension, unspecified; E87.5 Hyperkalemia; E11.40 Type 2 diabetes mellitus with diabetic neuropathy, unspecified; E11.65 Type 2 diabetes mellitus with hyperglycemia; E78.5 Hyperlipidemia, unspecified; J44.9 Chronic obstructive pulmonary disease, unspecified; Z79.4 Long term (current) use of insulin; Z99.2 Dependence on renal dialysis; Z80.3 Family history of malignant neoplasm of breast; Z79.899 Other long term (current) drug therapy; Z90.49 Acquired absence of other specified parts of digestive tract
CPT/HCPCS: 36415; 36600; 45378; 71045; 74176; 76604; 80048; 80053; 82805; 82962; 83540; 83550; 83690; 84132; 84484; 85014; 85018; 85025; 85610; 85730; 86850; 86900; 86901; 87081; 87426; 87804; 90935; 93005; 93306; 93970; 93971; 94640; 97110; 97116; 97163; 97530; C9113; G0378; J1642; J1815; J2250; J3490; P9047